=== PATIENT | male | born 1955 | race Caucasian/White ===

== ENCOUNTER 2017-08-23 18:08 | Inpatient (IN) | payer MEDICAID ==
[2017-08-23] MEDS ORDERED: Iohexol 240 (50 ml) PO ONE (20:00)
--- NOTE | 2017-08-23 20:02 | C.PDOC ---
History Of Present Illness Patient presents to the ER with a complaint of LLQ pain for the past 3 weeks. Patient admits to ETOH intake today; denies dysuria or diarrhea. Chief Complaint (Nursing): Abdominal Pain History Per: Patient History/Exam Limitations: no limitations Onset/Duration Of Symptoms: Days Current Symptoms Are (Timing): Still Present Location Of Pain/Discomfort: LLQ Radiation Of Pain To:: None Quality Of Discomfort: Unable To Describe Associated Symptoms: denies: Fever, Chills, Nausea, Vomiting Exacerbating Factors: None Alleviating Factors: None Recent travel outside of the [place]: No Past Medical History Reviewed: Historical Data, Nursing Documentation, Vital Signs Vital Signs: Last Vital Signs Temp 98.2 F 08/23/17 19:55 Pulse 117 H 08/23/17 19:55 Resp 20 08/23/17 19:55 BP 126/76 08/23/17 19:55 Pulse Ox 96 08/24/17 00:13 - Medical History PMH: HTN Surgical History: Appendectomy Family History: States: Unknown Family Hx - Social History Hx Alcohol Use: Yes Hx Substance Use: No - Immunization History Hx Tetanus Toxoid Vaccination: No Hx Influenza Vaccination: No Hx Pneumococcal Vaccination: No Review Of Systems Constitutional: Negative for: Fever, Chills Gastrointestinal: Positive for: Abdominal Pain. Negative for: Nausea, Vomiting , Diarrhea Genitourinary: Negative for: Dysuria Physical Exam - Physical Exam Appears: Non-toxic, No Acute Distress Skin: Normal Color, Warm, Dry Head: Atraumatic, Normacephalic Eye(s): bilateral: Normal Inspection Oral Mucosa: Moist Chest: Symmetrical Cardiovascular: Rhythm Regular, No Murmur Respiratory: No Rales, No Rhonchi, Wheezing (occa. wheezes and rhonchi) Gastrointestinal/Abdominal: Soft, Tenderness (LLQ), Distention (slightly) Back: Other (No blood noted) Neurological/Psych: Oriented x3, Normal Speech, Other (No focal deficits) ED Course And Treatment - Laboratory Results Result Diagrams: 08/23/17 20:28 08/23/17 20:28 O2 Sat by Pulse Oximetry: 96 (Room air) Pulse Ox Interpretation: Normal Progress Note: CT abd/pel, blood work, and urinalysis ordered. On reevaluation , patient noted to be tremulous and complaining of nausea. Disposition Discussed With : Jeremi Owusu Doctor Will See Patient In The: Hospital Counseled Patient/Family Regarding: Diagnosis - Disposition Disposition: HOSPITALIZED Disposition Time: 00:24 Condition: STABLE Forms: [facility] (Serbian) - POA Present On Arrival: None - Clinical Impression Clinical Impression: Abdominal pain, Alcohol intoxication, Hiatal hernia without gangrene and obstruction, Anemia, Withdrawal symptoms, alcohol - Scribe Statement The provider has reviewed the documentation as recorded by the Dnenisibjohn Ch All medical record entries made by the Dennisibjohn were at my direction and personally dictated by me. I have reviewed the chart and agree that the record accurately reflects my personal performance of the history, physical exam, medical decision making, and the department course for this patient. I have also personally directed, reviewed, and agree with the discharge instructions and disposition.
[2017-08-23] MEDS ORDERED: Iohexol 240 (50 ml) ONE (20:07)
[2017-08-23] MEDS ORDERED: Iohexol 300 100 ML IJ ONE (20:29)
[2017-08-23 20:41] LABS: RBC URINE 1 /hpf (0-3); TRANSITIONAL EPITHIAL < 1 /hpf (0-3); URINE BACTERIA RARE (<OCC); URINE BILIRUBIN NEGATIVE (NEGATIVE); URINE BLOOD NEGATIVE (NEGATIVE); URINE COLOR Yellow (YELLOW); URINE GLUCOSE (UA) NORMAL (Normal); URINE KETONE TRACE mg/dL (NEGATIVE); URINE LEUKOCYTE ESTERASE NEG Leu/uL (Negative); URINE PROTEIN NEGATIVE (NEGATIVE); URINE UROBILINOGEN NORMAL mg/dL (0.2-1.0); WBC URINE 1 /hpf (0-5)
[2017-08-23 20:55] LABS: ALB/GLOB RATIO 1.2 (1.0-2.1); ALCOHOL SERUM 128 mg/dl (0-10); ALKALINE PHOSPHATASE 83 U/L (38-126); ALT/SGPT 49 U/L (21-72); AST/SGOT 65 U/L (17-59); BILIRUBIN,TOTAL 0.8 mg/dL (0.2-1.3); BLOOD UREA NITROGEN 15 mg/dL (9-20); CALCIUM 7.9 mg/dl (8.6-10.4); CARBON DIOXIDE 15 mmol/L (22-30); CHLORIDE 98 mmol/L (98-107); GFR AFRICAN-AMERICAN > 60; GLUCOSE,RANDOM 108 mg/dL (75-110); POTASSIUM 3.9 mmol/L (3.6-5.2); SODIUM 132 mmol/L (132-148)
[2017-08-23 21:19] LABS: BASO % 0.8 % (0.0-2.0); EOS % 0.4 % (0.0-4.0); HEMATOCRIT 29.1 % (35.0-51.0); LYMPH # 0.1 K/uL (1.0-4.3); LYMPH % 1.3 % (20.0-40.0); MEAN CELL VOLUME 73.9 fL (80.0-94.0); MEAN CORPUSCULAR HEMOGLOBIN 22.1 pg (27.0-31.0); MEAN CORPUSCULAR HGB CONC 29.8 g/dL (33.0-37.0); MEAN PLATELET VOLUME 7.5 fL (7.2-11.7); MONO # 0.2 K/uL (0.0-0.8); NRBC % 0.1 % (0.0-2.0); PLATELET COUNT 202 K/uL (130-400); RED CELL DISTRIBUTION WIDTH 21.6 % (11.5-14.5); WHITE BLOOD COUNT 6.1 K/uL (4.8-10.8)
--- NOTE | 2017-08-23 22:49 | CT ---
EXAM: CT Abdomen and Pelvis With Intravenous Contrast CLINICAL HISTORY: 62 years old, male; Pain and signs and symptoms; Abdominal tenderness; Abdominal pain; Generalized; Cough and wheezing; Symptoms not specified; Chest pressure; Additional info: Cough/ wheezes TECHNIQUE: Axial computed tomography images of the abdomen and pelvis with intravenous contrast. All CT scans at this facility use one or more dose reduction techniques, viz.: automated exposure control; ma/kV adjustment per patient size (including targeted exams where dose is matched to indication; i.e. head); or iterative reconstruction technique. Coronal and sagittal reformatted images were created and reviewed. CONTRAST: 100 mL of OMNIPAQUE 300 administered intravenously. COMPARISON: No relevant prior studies available. FINDINGS: ABDOMEN: Liver: No acute findings. Gallbladder and bile ducts: The gallbladder is only minimally distended, without calcified stones. No significant intra- or extrahepatic biliary ductal dilation. Pancreas: Enhances homogeneously. No ductal dilation. No discrete mass. Spleen: No acute findings. Adrenals: No acute findings. Kidneys and ureters: No acute findings. No hydronephrosis or renal calculi. No discrete solid mass. PELVIS: Bladder: No acute findings. Reproductive: No acute findings. Appendix: The appendix is not definitively visualized, however no pericecal inflammatory change is identified to suggest the presence of acute appendicitis. ABDOMEN and PELVIS: Stomach and bowel: Paraesophageal hernia without volvulus. Oral contrast extends the level of the distal small bowel, without obstruction. No mucosal thickening. Peritoneum: No significant fluid collection. No free air. Lymph nodes: No pathologically enlarged lymph nodes. Vasculature: Unremarkable. Bones: No acute fracture. IMPRESSION: Paraesophageal hernia without volvulus. No additional findings, as detailed above. EXAM: CT Chest With Intravenous Contrast CLINICAL HISTORY: 62 years old, male; Pain and signs and symptoms; Abdominal tenderness; Abdominal pain; Generalized; Cough and wheezing; Symptoms not specified; Chest pressure; Additional info: Cough/ wheezes TECHNIQUE: Axial computed tomography images of the chest with intravenous contrast. All CT scans at this facility use one or more dose reduction techniques, viz.: automated exposure control; ma/kV adjustment per patient size (including targeted exams where dose is matched to indication; i.e. head); or iterative reconstruction technique. Coronal and sagittal reformatted images were created and reviewed. CONTRAST: 100 mL of OMNIPAQUE 300 administered intravenously. COMPARISON: No relevant prior studies available. FINDINGS: Lungs: A type 4 paraesophageal hernia is identified (consisting of nearly the entirety of the stomach, without volvulus), with adjacent compressive atelectasis. No mass. No consolidation. Pleural spaces: No significant effusion. No pneumothorax. Heart: No cardiomegaly. No significant pericardial effusion. Vasculature: No aortic aneurysm. No dissection. Trace calcified atherosclerotic disease. Lymph nodes: No enlarged lymph nodes. Bones: No acute fracture. IMPRESSION: Type 4 paraesophageal hernia, consisting of nearly the entirety of the stomach (without volvulus), with adjacent compressive atelectasis.
[2017-08-23 23:08] LABS: NEUTROPHIL 94 % (50-75); TOTAL CELLS COUNTED 100
[2017-08-24] MEDS ORDERED: Multivitamin (MVI) 10 ML, Thiamine 100 MG, Folic Acid 1 MG in Sodium Chloride 0.9% 1,00... IV ONE ×2 (00:13→02:19)
[2017-08-24] MEDS: Enoxaparin 40 mg Syringe SC SCH (10:08)
[2017-08-24] MEDS: Pantoprazole 40 mg EC Tab PO SCH (10:08)
--- NOTE | 2017-08-24 14:25 | PCM.PSYCH ---
Initial Psychiatric Evaluation - Initial Psychiatric Evaluation Type of Admission: Voluntary Legal Status: Capacity Chief Complaint (in patient's own words): "My knee, I need help" History of Present Illness and Precipitating Events: The pt is seen, chart reviewed and case discussed Consult was asked for his alcohol use He is a 62 y/o male, single with 2 children, lives in a gnosticist b/c he "lost" his apartment. Unemployed. He minimizes his alcohol use and claims he only drinks 1-2 shots No previous tx No drug use Denies psych hx or sxs except for anxiety He is mostly fixated on his knee problem (leg edema) and demands to see "a doctor" No other issues reported Medical: HTN Current Medications: Active Medications Generic Name Dose Route Start Last Admin Trade Name Freq PRN Reason Stop Dose Admin Chlordiazepoxide 0 mg 08/24/17 18:00 Librium PO 08/28/17 17:59 Q6 HOLGER Taper Enoxaparin Sodium 40 mg 08/24/17 10:00 08/24/17 10:08 Lovenox SC 40 mg DAILY HOLGER Administration Folic Acid 1 mg 08/24/17 14:30 Folic Acid PO DAILY HOLGER Multivitamins 1 tab 08/24/17 14:30 Hexavitamin PO DAILY [facility]GER Ondansetron HCl 4 mg 08/24/17 08:00 Zofran Odt PO Q4 PRN Nausea/Vomiting Pantoprazole Sodium 40 mg 08/24/17 10:00 08/24/17 10:08 Protonix Ec Tab PO 40 mg DAILY [facility]OLGER Administration Pneumococcal Polyvalent Vaccine 0.5 ml 08/27/17 10:00 Pneumovax 23 Vaccine IM 08/27/17 10:01 .ONCE ONE Thiamine HCl 100 mg 08/24/17 14:30 Vitamin B1 Tab PO DAILY HOLGER Trazodone HCl 50 mg 08/24/17 14:23 Desyrel PO HS PRN Insomnia Past Psychiatric History - Past Psychiatric History Previous Treatment History: None Pertinent Medical Hx (Current Medical&Sleep Prob, Allergies): Allergies Allergy/AdvReac Type Severity Reaction Status Date / Time No Known Allergies Allergy Verified 08/23/17 18:36 Review of Systems - Psychiatric Psychiatric: Abnormal Sleep Pattern, Anxiety. absent: Hallucinations, Homicidal Ideation, Suicidal Ideation Mental Status Examination - Personal Presentation Personal Presentation: Looks older than stated age - Affect Affect: Constricted - Motor Activity Motor Activity: Calm - Reliability in Providing Information Reliability in Providing Information: Fair - Speech Speech: Organized - Mood Mood: Anxious - Formal Thought Process Formal Thought Process: No Impairment - Cognitive Functions Orientation: Person, Place, Situation, Time Sensorium: Alert Attention/Concentration: Attentive Estimate of Intelligence: Average Judgement: Intact, as evidence by: Insight regarding need for hospitalization Memory: Recent intact, as evidence by: Ability to recall events of the day, Remote intact, as evidenced by: Abilit to recall sig. life events - Risk Risk: Withdrawal, Diminished functioning - Strength & Assets Inventory Strength & Assets Inventory: Cooperative DSM 5 DX - DSM 5 DSM 5 Diagnosis: Alcohol use d/o - moderate - Recommended/Plan of Treatment Treatment Recommendations and Plan of Treatment: Short librium detox to prevent any issues (he is under-reporting per chart) Trazodone for insomnia Support and psychoed Prn meds and vitamins Refer to rehab, ie [facility], if interested Psych will sign off Pls call if there is a question 31 min
--- NOTE | 2017-08-24 19:00 | CP.PCM.HP ---
History of Present Illness - History of Present Illness History of Present Illness: 62-year-old male with PMHHTN presents to the ER for evaluation of abdominal pain. C/O - abdominal pain for the last 20 days. Insidious in onset, progressive, in the left lower quadrant, throbbing type, intensity of 5/10, continuous throughout the day, partly relieved by medications. Patient admits to alcohol intake daily. No C/Oyellowish discoloration of urine sclera, fever, chills, rigors, bladder or bowel disturbances, vomiting. Present on Admission - Present on Admission Any Indicators Present on Admission: No Past Patient History - Past Medical History & Family History Past Medical History?: Yes - Past Social History Smoking Status: Never Smoked - CARDIAC Hx Cardiac Disorders: Yes Hx Hypertension: Yes - PULMONARY Hx Respiratory Disorders: No - NEUROLOGICAL Hx Neurological Disorder: No - HEENT Hx HEENT Problems: No - RENAL Hx Chronic Kidney Disease: No - ENDOCRINE/METABOLIC Hx Endocrine Disorders: No - HEMATOLOGICAL/ONCOLOGICAL Hx Blood Disorders: No - INTEGUMENTARY Hx Dermatological Problems: No - MUSCULOSKELETAL/RHEUMATOLOGICAL Hx Musculoskeletal Disorders: No Hx Falls: No - GASTROINTESTINAL Hx Gastrointestinal Disorders: No - GENITOURINARY/GYNECOLOGICAL Hx Genitourinary Disorders: Yes Hx Prostate Problems: Yes - PSYCHIATRIC Hx Psychophysiologic Disorder: No Hx Substance Use: No - SURGICAL HISTORY Hx Surgeries: Yes Hx Appendectomy: Yes - ANESTHESIA Hx Anesthesia: Yes Hx Anesthesia Reactions: No Hx Malignant Hyperthermia: No Has any member of the family had a problem w/ anesthesia?: No Meds Allergies/Adverse Reactions: Allergies Allergy/AdvReac Type Severity Reaction Status Date / Time No Known Allergies Allergy Verified 08/23/17 18:36 Physical Exam - Constitutional Appears: Well - Head Exam Head Exam: ATRAUMATIC, NORMAL INSPECTION, NORMOCEPHALIC - Eye Exam Eye Exam: EOMI, Normal appearance, PERRL Pupil Exam: NORMAL ACCOMODATION, PERRL - ENT Exam ENT Exam: Mucous Membranes Moist, Normal Exam - Neck Exam Neck exam: Positive for: Normal Inspection - Respiratory Exam Respiratory Exam: Decreased Breath Sounds - Cardiovascular Exam Cardiovascular Exam: REGULAR RHYTHM, +S1, +S2 - GI/Abdominal Exam GI & Abdominal Exam: Diminished Bowel Sounds, Soft - Rectal Exam Rectal Exam: Deferred Results - Vital Signs Recent Vital Signs: Last Vital Signs Temp 99.6 F 08/24/17 16:45 Pulse 87 11/29/17 16:45 Resp 18 08/24/17 16:45 BP 123/68 08/24/17 16:45 Pulse Ox 95 08/24/17 16:45 - Labs Result Diagrams: 08/23/17 20:28 08/23/17 20:28 Labs: Laboratory Results - last 24 hr 08/23/17 08/23/17 08/23/17 20:28 20:28 20:28 WBC 6.1 RBC 3.94 L Hgb 8.7 L Hct 29.1 L MCV 73.9 L MCH 22.1 L MCHC 29.8 L RDW 21.6 H Plt Count 202 MPV 7.5 Neut % (Auto) 94.5 H Lymph % (Auto) 1.3 L [place] % (Auto) 3.0 Eos % (Auto) 0.4 Baso % (Auto) 0.8 Neut # 5.7 Lymph # 0.1 L [place] # 0.2 Eos # 0.0 Baso # 0.0 Neutrophils % (Manual) 94 H Band Neutrophils % 1 Lymphocytes % (Manual) 2 L Monocytes % (Manual) 3 Platelet Estimate Normal Hypochromasia (manual) Slight Poikilocytosis (manual Slight Anisocytosis (manual) Slight Microcytosis (manual) Slight Sodium 132 Potassium 3.9 Chloride 98 Carbon Dioxide 15 L Anion Gap 22 H BUN 15 Creatinine 1.0 Est GFR ( Amer) > 60 Est GFR (Non-Af Amer) > 60 Random Glucose 108 Calcium 7.9 L Total Bilirubin 0.8 AST 65 H ALT 49 Alkaline Phosphatase 83 Total Protein 7.0 Albumin 3.8 Globulin 3.2 Albumin/Globulin Ratio 1.2 Lipase 57 Urine Color Yellow Urine Clarity Clear Urine pH 5.0 Ur Specific [place] 1.018 Urine Protein Negative Urine Glucose (UA) Normal Urine Ketones Trace Urine Blood Negative Urine Nitrate Negative Urine Bilirubin Negative Urine Urobilinogen Normal Ur Leukocyte Esterase Neg Urine WBC (Auto) 1 Urine RBC (Auto) 1 Ur Squamous Epith Cells < 1 Ur Transition Epith Cell < 1 Urine Bacteria Rare Stool Occult Blood Urine Opiates Screen Urine Methadone Screen Ur Barbiturates Screen Ur Phencyclidine Scrn Ur Amphetamines Screen U Benzodiazepines Scrn U Oth Cocaine Metabols U Cannabinoids Screen Alcohol, Quantitative 128 H 08/23/17 08/24/17 20:28 00:20 WBC RBC Hgb Hct MCV MCH MCHC RDW Plt Count MPV Neut % (Auto) Lymph % (Auto) [place] % (Auto) Eos % (Auto) Baso % (Auto) Neut # Lymph # [place] # Eos # Baso # Neutrophils % (Manual) Band Neutrophils % Lymphocytes % (Manual) Monocytes % (Manual) Platelet Estimate Hypochromasia (manual) Poikilocytosis (manual Anisocytosis (manual) Microcytosis (manual) Sodium Potassium Chloride Carbon Dioxide Anion Gap BUN Creatinine Est GFR ( Amer) Est GFR (Non-Af Amer) Random Glucose Calcium Total Bilirubin AST ALT Alkaline Phosphatase Total Protein Albumin Globulin Albumin/Globulin Ratio Lipase Urine Color Urine Clarity Urine pH Ur Specific [place] Urine Protein Urine Glucose (UA) Urine Ketones Urine Blood Urine Nitrate Urine Bilirubin Urine Urobilinogen Ur Leukocyte Esterase Urine WBC (Auto) Urine RBC (Auto) Ur Squamous Epith Cells Ur Transition Epith Cell Urine Bacteria Stool Occult Blood Negative Urine Opiates Screen Negative Urine Methadone Screen Negative Ur Barbiturates Screen Negative Ur Phencyclidine Scrn Negative Ur Amphetamines Screen Negative U Benzodiazepines Scrn Negative U Oth Cocaine Metabols Negative U Cannabinoids Screen Negative Alcohol, Quantitative
[2017-08-24] MEDS ORDERED: HYDROmorphone 1 mg/ml ISec IVP PRN (19:16)
[2017-08-24] MEDS ORDERED: DiphenhydrAMINE 50 mg/ml Inj IVP PRN (19:16)
--- NOTE | 2017-08-25 09:23 | CP.PCM.PN ---
Addendum entered and electronically signed by Alvaro Denis DO 08/25/17 16:05: d/c planning; patient is pending echo which will be done tomorrow patient will likely be ok for d/c after echo surgery as outpatient Original Note: <Alvaro Denis - Last Filed: 08/25/17 10:31> Subjective - Date & Time of Evaluation Date of Evaluation: 08/25/17 Time of Evaluation: 09:24 - Subjective Subjective: PGY2 Medicine Note for Dr. Marin Owusu; all management as per Dr. Marin Owusu Pt seen and examined at bedside this AM; states he still has abdominal pain which is related to his type 4 paraesophageal hernia; he states he feels like his alchol withdrawal is being handled nicely with librium taper; no signs of DT /hallucinations/seizures patient is ANOx3 and mildly tremulous on exam. No other complaints. Objective - Vital Signs/Intake and Output Vital Signs (last 24 hours): Temp Pulse Resp BP Pulse Ox 98 F 109 H 20 138/84 96 08/24/17 18:45 08/24/17 18:45 08/24/17 18:45 08/24/17 18:45 08/24/17 18:45 Intake and Output: 08/25/17 08/25/17 06:59 18:59 Intake Total 200 Output Total 900 Balance -700 - Medications Medications: Current Medications Chlordiazepoxide (Librium) 25 mg PO .TAPER HOLGER PRN Reason: Taper Stop: 08/28/17 17:59 Diphenhydramine HCl (Benadryl) 25 mg IVP Q8H PRN PRN Reason: Itching / Pruritus Enoxaparin Sodium (Lovenox) 40 mg SC DAILY [facility] Last Admin: 08/24/17 10:08 Dose: 40 mg Folic Acid (Folic Acid) 1 mg PO DAILY [facility] Hydromorphone HCl (Dilaudid) 1 mg IVP Q8H PRN PRN Reason: Pain, moderate (4-7) Multivitamins (Hexavitamin) 1 tab PO DAILY HOLGER Ondansetron HCl (Zofran Odt) 4 mg PO Q4 PRN PRN Reason: Nausea/Vomiting Pantoprazole Sodium (Protonix Ec Tab) 40 mg PO DAILY [facility] Last Admin: 08/24/17 10:08 Dose: 40 mg Pneumococcal Polyvalent Vaccine (Pneumovax 23 Vaccine) 0.5 ml IM .ONCE ONE Stop: 08/27/17 10:01 Thiamine HCl (Vitamin B1 Tab) 100 mg PO DAILY HOLGER Trazodone HCl (Desyrel) 50 mg PO HS PRN PRN Reason: Insomnia - Labs Labs: 08/23/17 20:28 08/23/17 20:28 - Constitutional Appears: Well, Non-toxic - Head Exam Head Exam: ATRAUMATIC - Eye Exam Eye Exam: EOMI, Normal appearance - ENT Exam ENT Exam: Mucous Membranes Moist - Neck Exam Neck Exam: Full ROM - Respiratory Exam Respiratory Exam: Clear to Ausculation Bilateral - Cardiovascular Exam Cardiovascular Exam: REGULAR RHYTHM - GI/Abdominal Exam GI & Abdominal Exam: Soft - Extremities Exam Extremities Exam: Full ROM. absent: Calf Tenderness - Back Exam Back Exam: absent: CVA tenderness (L), CVA tenderness (R) - Neurological Exam Neurological Exam: Alert, Awake, Oriented x3 - Psychiatric Exam Psychiatric exam: Normal Affect - Skin Skin Exam: Warm Assessment and Plan - Assessment and Plan (Free Text) Assessment: 62yo M admitted for EtOH Withdrawl EtOH Withdrawal -Thiamine/Folate daily -Librium Taper -once stable patient can be d/c home/to outpatient rehab as per psych -patient is not in DT/having seizures/actively withdrawing on current taper -patient is tolerating PO Pancytopenia most likely 2/2 to crhonic EtOH Bone marrow toxicity -patient has no active bleeding -will continue to monitor; patient advised to stop drinking Type 4 paraesophageal hernia -patient will likely need surgical repair; pending surgical consult -patient needs to be medically optimized before surgery; f/u echo and Dr. Humphrey cardio recs Proph Protonix Lovenox Heart Healthy Diet All management as per Dr. Marin Owusu <Jeremi Owusu S - Last Filed: 08/25/17 17:18> Objective - Vital Signs/Intake and Output Vital Signs (last 24 hours): Temp Pulse Resp BP Pulse Ox 98.5 F 83 20 127/77 95 08/25/17 16:15 08/25/17 16:15 08/25/17 16:15 08/25/17 16:15 08/25/17 16:15 Intake and Output: 08/25/17 08/25/17 06:59 18:59 Intake Total 1280 Output Total 900 Balance 380 - Medications Medications: Current Medications Chlordiazepoxide (Librium) 25 mg PO .TAPER [facility] PRN Reason: Taper Stop: 08/28/17 17:59 Diphenhydramine HCl (Benadryl) 25 mg IVP Q8H PRN PRN Reason: Itching / Pruritus Docusate Sodium (Colace) 100 mg PO BID [facility] Last Admin: 08/25/17 10:12 Dose: 100 mg Enoxaparin Sodium (Lovenox) 40 mg SC DAILY [facility] Last Admin: 08/25/17 10:12 Dose: 40 mg Folic Acid (Folic Acid) 1 mg PO DAILY [facility] Last Admin: 08/25/17 10:12 Dose: 1 mg Guaifenesin/Codeine Phosphate (Guaifenesin/Codeine) 10 ml PO Q4H PRN PRN Reason: Cough and congestion Last Admin: 08/25/17 10:11 Dose: 10 ml Hydromorphone HCl (Dilaudid) 1 mg IVP Q8H PRN PRN Reason: Pain, moderate (4-7) Multivitamins (Hexavitamin) 1 tab PO DAILY [facility] Last Admin: 08/25/17 10:12 Dose: 1 tab Ondansetron HCl (Zofran Odt) 4 mg PO Q4 PRN PRN Reason: Nausea/Vomiting Pantoprazole Sodium (Protonix Ec Tab) 40 mg PO BID [facility] Pneumococcal Polyvalent Vaccine (Pneumovax 23 Vaccine) 0.5 ml IM .ONCE ONE Stop: 08/27/17 10:01 Tamsulosin HCl (Flomax) 0.8 mg PO DAILY [facility] Last Admin: 08/25/17 14:22 Dose: 0.8 mg Thiamine HCl (Vitamin B1 Tab) 100 mg PO DAILY [facility] Last Admin: 08/25/17 10:12 Dose: 100 mg Trazodone HCl (Desyrel) 50 mg PO HS PRN PRN Reason: Insomnia - Labs Labs: 08/23/17 20:28 08/23/17 20:28 Attending/Attestation - Attestation I have personally seen and examined this patient.: Yes I have fully participated in the care of the patient.: Yes I have reviewed all pertinent clinical information, including history, physical exam and plan: Yes Notes (Text): Patient examined. Patient better. Patient still has mild abdominal pain, Likely related to type IV paraesophageal hernia. 2D echo tomorrow. Continue Librium, multivitamins, thiamine and folic acid. Continue supportive care.
[2017-08-25] MEDS: Pantoprazole 40 mg EC Tab PO SCH ×2 (10:11→18:24)
[2017-08-25] MEDS: guaiFENesin-Codeine 100-10mg/5ml Syrup (10ml) UD PO PRN (10:11)
[2017-08-25] MEDS: Enoxaparin 40 mg Syringe SC SCH (10:12)
[2017-08-25] MEDS: Multiple Vitamins Tab PO SCH (10:12)
--- NOTE | 2017-08-25 10:42 | CP.PCM.CON ---
<Curly Wills - Last Filed: 08/25/17 17:01> History of Present Illness - History of Present Illness History of Present Illness: General Surgery Consult Note for Dr. Sandoval Reason for consult: grade IV paraesophageal hernia 62 M with PMH of HTN, EtOH abuse, BPH who was admitted for intoxication and abdominal pain. CT chest/abdomen/pelvis was done and findings showed a grade IV paraesophageal hernia. Patient states that he has been having abdominal pain for last 2-3 months. Patient states that he has associated nausea and reflux intermittently. He reports a gradual onset and states it has gotten progressively worse. He rates the pain as moderate. He describes it as constant dull ache in epigastric region without radiation. He also reports productive cough. He is toelrating diet and having normal BMs. Certain foods/liquids exacerbates symptoms while nothing alleviates it specifically. Admits to urinary urgency, frequency, hesitancy. Denies chest pain, sob, palpitations, constipation, diarrhea, incontinence. PMH: HTN, EtOH abuse, BPH, Grade IV paraesophageal hernia Meds: As per EMR Allergy: NKDA PSH: Denies FH: unknown Social: denies tobacco/illicit drug use, drinks 1-2 shots per day, homeless currently Review of Systems - Review of Systems All systems: reviewed and no additional remarkable complaints except (as per HPI ) Past Patient History - Past Medical History & Family History Past Medical History?: Yes - Past Social History Smoking Status: Never Smoked - CARDIAC Hx Cardiac Disorders: Yes Hx Hypertension: Yes - PULMONARY Hx Respiratory Disorders: No - NEUROLOGICAL Hx Neurological Disorder: No - HEENT Hx HEENT Problems: No - RENAL Hx Chronic Kidney Disease: No - ENDOCRINE/METABOLIC Hx Endocrine Disorders: No - HEMATOLOGICAL/ONCOLOGICAL Hx Blood Disorders: No - INTEGUMENTARY Hx Dermatological Problems: No - MUSCULOSKELETAL/RHEUMATOLOGICAL Hx Musculoskeletal Disorders: No Hx Falls: No - GASTROINTESTINAL Hx Gastrointestinal Disorders: No - GENITOURINARY/GYNECOLOGICAL Hx Genitourinary Disorders: Yes Hx Prostate Problems: Yes - PSYCHIATRIC Hx Psychophysiologic Disorder: No Hx Substance Use: No - SURGICAL HISTORY Hx Surgeries: Yes Hx Appendectomy: Yes - ANESTHESIA Hx Anesthesia: Yes Hx Anesthesia Reactions: No Hx Malignant Hyperthermia: No Has any member of the family had a problem w/ anesthesia?: No Meds Allergies/Adverse Reactions: Allergies Allergy/AdvReac Type Severity Reaction Status Date / Time No Known Allergies Allergy Verified 08/23/17 18:36 - Medications Medications: Current Medications Chlordiazepoxide (Librium) 25 mg PO .TAPER [facility] PRN Reason: Taper Stop: 08/28/17 17:59 Diphenhydramine HCl (Benadryl) 25 mg IVP Q8H PRN PRN Reason: Itching / Pruritus Docusate Sodium (Colace) 100 mg PO BID [facility] Last Admin: 08/25/17 10:12 Dose: 100 mg Enoxaparin Sodium (Lovenox) 40 mg SC DAILY [facility] Last Admin: 08/25/17 10:12 Dose: 40 mg Folic Acid (Folic Acid) 1 mg PO DAILY [facility] Last Admin: 08/25/17 10:12 Dose: 1 mg Guaifenesin/Codeine Phosphate (Guaifenesin/Codeine) 10 ml PO Q4H PRN PRN Reason: Cough and congestion Last Admin: 08/25/17 10:11 Dose: 10 ml Hydromorphone HCl (Dilaudid) 1 mg IVP Q8H PRN PRN Reason: Pain, moderate (4-7) Multivitamins (Hexavitamin) 1 tab PO DAILY [facility] Last Admin: 08/25/17 10:12 Dose: 1 tab Ondansetron HCl (Zofran Odt) 4 mg PO Q4 PRN PRN Reason: Nausea/Vomiting Pantoprazole Sodium (Protonix Ec Tab) 40 mg PO BID [facility] Pneumococcal Polyvalent Vaccine (Pneumovax 23 Vaccine) 0.5 ml IM .ONCE ONE Stop: 08/27/17 10:01 Thiamine HCl (Vitamin B1 Tab) 100 mg PO DAILY [facility] Last Admin: 08/25/17 10:12 Dose: 100 mg Trazodone HCl (Desyrel) 50 mg PO HS PRN PRN Reason: Insomnia Physical Exam - Constitutional Appears: No Acute Distress - Head Exam Head Exam: ATRAUMATIC, NORMOCEPHALIC - Eye Exam Eye Exam: EOMI, Normal appearance Pupil Exam: PERRL - ENT Exam ENT Exam: Mucous Membranes Moist - Neck Exam Neck exam: Positive for: Full Rom - Respiratory Exam Respiratory Exam: NORMAL BREATHING PATTERN - Cardiovascular Exam Cardiovascular Exam: REGULAR RHYTHM - GI/Abdominal Exam GI & Abdominal Exam: Normal Bowel Sounds, Soft, Tenderness (epigastric region). absent: Distended, Firm, Guarding, Mass, Rigid - Extremities Exam Extremities exam: Positive for: normal capillary refill, pedal pulses present - Back Exam Back exam: absent: CVA tenderness (L), CVA tenderness (R) - Neurological Exam Neurological exam: Alert, CN II-XII Intact, Oriented x3 - Psychiatric Exam Psychiatric exam: Normal Affect, Normal Mood - Skin Skin Exam: Dry, Intact, Normal Color, Warm Results - Vital Signs Recent Vital Signs: Last Vital Signs Temp 98 F 08/25/17 08:00 Pulse 82 08/25/17 08:00 Resp 20 08/25/17 08:00 BP 133/74 08/25/17 08:00 Pulse Ox 96 08/25/17 08:00 - Labs Result Diagrams: 08/23/17 20:28 08/23/17 20:28 Assessment & Plan - Assessment and Plan (Free Text) Plan: 62 M with grade IV paraesophageal hernia -No immediate surgical intervention required - need proper work-up and can be done electively -Recommend GI evaluation -Patient needs to refrain from drinking -Recommend Cardiac evaluation -Discussed with Dr. Lori Wills PGY1 <Foreign Sandoval - Last Filed: 08/26/17 22:13> Meds - Medications Medications: Current Medications Calcium Carbonate (Tums) 500 mg PO BID [facility] Last Admin: 08/26/17 17:12 Dose: 500 mg Chlordiazepoxide (Librium) 25 mg PO BID [facility] PRN Reason: Taper Stop: 08/28/17 17:59 Last Admin: 08/26/17 17:12 Dose: 25 mg Diphenhydramine HCl (Benadryl) 25 mg IVP Q8H PRN PRN Reason: Itching / Pruritus Docusate Sodium (Colace) 100 mg PO BID [facility] Last Admin: 08/26/17 17:12 Dose: 100 mg Enoxaparin Sodium (Lovenox) 40 mg SC DAILY [facility] Last Admin: 08/26/17 10:13 Dose: 40 mg Folic Acid (Folic Acid) 1 mg PO DAILY [facility] Last Admin: 08/26/17 10:13 Dose: 1 mg Guaifenesin/Codeine Phosphate (Guaifenesin/Codeine) 10 ml PO Q4H PRN PRN Reason: Cough and congestion Last Admin: 08/25/17 10:11 Dose: 10 ml Hydromorphone HCl (Dilaudid) 1 mg IVP Q8H PRN PRN Reason: Pain, moderate (4-7) Multivitamins (Hexavitamin) 1 tab PO DAILY [facility] Last Admin: 08/26/17 10:13 Dose: 1 tab Ondansetron HCl (Zofran Odt) 4 mg PO Q4 PRN PRN Reason: Nausea/Vomiting Pantoprazole Sodium (Protonix Ec Tab) 40 mg PO BID [facility] Last Admin: 08/26/17 17:12 Dose: 40 mg Pneumococcal Polyvalent Vaccine (Pneumovax 23 Vaccine) 0.5 ml IM .ONCE ONE Stop: 08/27/17 10:01 Potassium Chloride (Potassium Chloride Oral Soln) 20 meq PO Q2 [facility] Last Admin: 08/26/17 21:09 Dose: 20 meq Tamsulosin HCl (Flomax) 0.8 mg PO DAILY [facility] Last Admin: 08/26/17 10:12 Dose: 0.8 mg Thiamine HCl (Vitamin B1 Tab) 100 mg PO DAILY [facility] Last Admin: 08/26/17 10:13 Dose: 100 mg Trazodone HCl (Desyrel) 50 mg PO HS PRN PRN Reason: Insomnia Results - Vital Signs Recent Vital Signs: Last Vital Signs Temp 98.2 F 08/26/17 16:00 Pulse 81 08/26/17 16:00 Resp 20 08/26/17 16:00 BP 107/67 08/26/17 16:00 Pulse Ox 95 08/26/17 16:00 - Labs Result Diagrams: 08/26/17 08:07 08/26/17 08:07 Labs: Laboratory Results - last 24 hr 08/26/17 08/26/17 08:07 08:07 WBC 4.5 L RBC 3.89 L Hgb 8.6 L Hct 28.8 L MCV 73.9 L MCH 22.1 L MCHC 29.9 L RDW 21.3 H Plt Count 194 MPV 8.6 Neut % (Auto) 60.7 Lymph % (Auto) 21.3 [place] % (Auto) 12.1 H Eos % (Auto) 5.0 H Baso % (Auto) 0.9 Neut # 2.8 Lymph # 1.0 [place] # 0.5 Eos # 0.2 Baso # 0.0 Sodium 139 Potassium 3.5 L Chloride 101 Carbon Dioxide 32 H Anion Gap 9 L BUN 12 Creatinine 1.1 Est GFR ( Amer) > 60 Est GFR (Non-Af Amer) > 60 Random Glucose 105 Calcium 8.0 L Total Bilirubin 0.6 AST 44 ALT 46 Alkaline Phosphatase 72 Total Protein 6.0 L Albumin 3.2 L Globulin 2.7 Albumin/Globulin Ratio 1.2 Attending/Attestation - Attestation I have personally seen and examined this patient.: Yes I have fully participated in the care of the patient.: Yes I have reviewed all pertinent clinical information: Yes Notes (Text): Pt was seen and examined at bedside Agree with above note and assessment Pt with abdominal pain, ETOH abuse, Large Hiatal hernia Labs and radiology reviewed Clinically Pt is improving Abdomen is non tender. No clinical evidence of strangulation or obstruction. Can start liquid diet c.w current mx for ETOH withdrawal GI consult for EGD Upper GI series Plan d/w pt in detail Plan d.w PMD Risk and benefit explained in detail.
--- NOTE | 2017-08-25 13:24 | CP.PCM.CON ---
History of Present Illness - History of Present Illness History of Present Illness: I was asked to see patient for cardiovascular risk assessment. Patient is a 62 year old male with PMH ETOH abuse, HTN who presents with abdominal pain. Patient was found to have a paraesophageal hernia. Consultation was requested for preoperative risk assessment. The patient denies current chest pain. There is no EKG for me to interpret. Review of Systems - Constitutional Constitutional: absent: As Per HPI, Anorexia, Chills, Daytime Sleepiness, Excessive Sweating, Fatigue, Fever, Frequent Falls, Headache, Increased Appetite , Lethargy, Malaise, Night Sweats, Snoring, Sleep Apnea, Weight Gain, Weight Loss, Weakness, Other - EENT Eyes: absent: As Per HPI, Blind Spots, Blurred Vision, Change in Vision, Decreased Night Vision, Diplopia, Discharge, Dry Eye, Exophthalmos, Floaters, Irritation, Itchy Eyes, Loss of Peripheral Vision, Pain, Photophobia, Requires Corrective Lenses, Sees Flashes, Spots in Vision, Tunnel Vision, Other Visual Disturbances, Loss of Vision, Other Ears: absent: As Per HPI, Decreased Hearing, Ear Discharge, Ear Pain, Tinnitus, Abnormal Hearing, Disequilibrium, Dizziness, Other Nose/Mouth/Throat: absent: As Per HPI, Epistaxis, Nasal Congestion, Nasal Discharge, Nasal Obstruction, Nasal Trauma, Nose Pain, Post Nasal Drip, Sinus Pain, Sinus Pressure, Bleeding Gums, Change in Voice, Dental Pain, Dry Mouth, Dysphagia, Halitosis, Hoarsness, Lip Swelling, Mouth Lesions, Mouth Pain, Odynophagia, Sore Throat, Throat Swelling, Tongue Swelling, Facial Pain, Neck Pain, Neck Mass, Other - Cardiovascular Cardiovascular: absent: As Per HPI, Acrocyanosis, Chest Pain, Chest Pain at Rest , Chest Pain with Activity, Claudication, Diaphoresis, Dyspnea, Dyspnea on Exertion, Edema, Irregular Heart Rhythm, Pain Radiating to Arm/Neck/Jaw, Leg Edema, Leg Ulcers, Lightheadedness, Orthopnea, Palpitations, Paroxysmal Nocturnal Dyspnea, Pedal Edema, Radiating Pain, Rapid Heart Rate, Slow Heart Rate, Syncope, Other - Respiratory Respiratory: absent: As Per HPI, Cough, Dyspnea, Hemoptysis, Dyspnea on Exertion , Wheezing, Snoring, Stridor, Pain on Inspiration, Chest Congestion, Excessive Mucous Production, Change in Mucous Color, Pain with Coughing, Other - Gastrointestinal Gastrointestinal: Abdominal Pain - Genitourinary Genitourinary: absent: As Per HPI, Change in Urinary Stream, Difficulty Urinating, Dysuria, Flank Pain, Hematuria, Pyuria, Nocturia, Urinary Incontinence, Urinary Frequency, Urinary Hesitance, Urinary Urgency, Voiding Freq/Small Amts, Freq UTI, Hx Renal/Bladder Calculi, Hx /Renal Surgery, Bladder Distension, Other - Musculoskeletal Musculoskeletal: absent: As Per HPI, Abnormal Gait, Arthralgias, Atrophy, Back Pain, Deformity, Joint Swelling, Limited Range of Motion, Loss of Height, Muscle Cramps, Muscle Weakness, Myalgias, Neck Pain, Numbness, Radiating Pain into Limb, Stiffness, Tingling, Other - Integumentary Integumentary: absent: As Per HPI, Acne, Alopecia, Bleeding Lesions, Change in Hair, Change in Nails, Change in Pigmentation, Changing Lesions, Dry Skin, Erythema, Furuncle, Hirsutism, Lesions, New Lesions, Non-Healing Lesions, Photosensitivity, Pruritus, Rash, Skin Pain, Skin Ulcer, Sores, Striae, Swelling , Unusual Bruising, Wounds, Jaundice, Other - Neurological Neurological: absent: As Per HPI, Abnormal Gait, Abnormal Hearing, Abnormal Movements, Abnormal Speech, Behavioral Changes, Burning Sensations, Confusion, Convulsions, Disequilibrium, Dizziness, Numbness, Focal Weakness, Frequent Falls , Headaches, Lack of Coordination, Loss of Vision, Memory Loss, Paresthesias, Radicular Pain, Restless Legs, Sensory Deficit, Syncope, Tingling, Tremor, Vertigo, Weakness, Other Visual Disturbances, Other - Psychiatric Psychiatric: absent: As Per HPI, Abnormal Sleep Pattern, Anhedonia, Anxiety, Auditory Hallucinations, Behavioral Changes, Change in Appetite, Change in Libido, Confusion, Depression, Difficulty Concentrating, Hallucinations, Homicidal Ideation, Hopelessness, Irritability, Memory Loss, Mood Swings, Panic Attacks, Paranoia, Suicidal Ideation, Visual Hallucinations, Tactile Hallucinations, Other - Endocrine Endocrine: absent: As Per HPI, Change in Body Appearance, Change in Libido, Cold Intolorance, Deepening of Voice, Excessive Sweating, Fatigue, Flushing, Heat Intolorance, Increase in Ring/Shoe/Hat Size, Palpitations, Polydipsia, Polyphagia, Polyuria, Other - Hematologic/Lymphatic Hematologic: absent: As Per HPI, Easy Bleeding, Easy Bruising, Lymphadenopathy, Other Past Patient History - Past Medical History & Family History Past Medical History?: Yes - Past Social History Smoking Status: Never Smoked - CARDIAC Hx Cardiac Disorders: Yes Hx Hypertension: Yes - PULMONARY Hx Respiratory Disorders: No - NEUROLOGICAL Hx Neurological Disorder: No - HEENT Hx HEENT Problems: No - RENAL Hx Chronic Kidney Disease: No - ENDOCRINE/METABOLIC Hx Endocrine Disorders: No - HEMATOLOGICAL/ONCOLOGICAL Hx Blood Disorders: No - INTEGUMENTARY Hx Dermatological Problems: No - MUSCULOSKELETAL/RHEUMATOLOGICAL Hx Musculoskeletal Disorders: No Hx Falls: No - GASTROINTESTINAL Hx Gastrointestinal Disorders: No - GENITOURINARY/GYNECOLOGICAL Hx Genitourinary Disorders: Yes Hx Prostate Problems: Yes - PSYCHIATRIC Hx Psychophysiologic Disorder: No Hx Substance Use: No - SURGICAL HISTORY Hx Surgeries: Yes Hx Appendectomy: Yes - ANESTHESIA Hx Anesthesia: Yes Hx Anesthesia Reactions: No Hx Malignant Hyperthermia: No Has any member of the family had a problem w/ anesthesia?: No Meds Allergies/Adverse Reactions: Allergies Allergy/AdvReac Type Severity Reaction Status Date / Time No Known Allergies Allergy Verified 08/23/17 18:36 - Medications Medications: Current Medications Chlordiazepoxide (Librium) 25 mg PO .TAPER [facility] PRN Reason: Taper Stop: 08/28/17 17:59 Diphenhydramine HCl (Benadryl) 25 mg IVP Q8H PRN PRN Reason: Itching / Pruritus Docusate Sodium (Colace) 100 mg PO BID [facility] Last Admin: 08/25/17 10:12 Dose: 100 mg Enoxaparin Sodium (Lovenox) 40 mg SC DAILY [facility] Last Admin: 08/25/17 10:12 Dose: 40 mg Folic Acid (Folic Acid) 1 mg PO DAILY [facility] Last Admin: 08/25/17 10:12 Dose: 1 mg Guaifenesin/Codeine Phosphate (Guaifenesin/Codeine) 10 ml PO Q4H PRN PRN Reason: Cough and congestion Last Admin: 08/25/17 10:11 Dose: 10 ml Hydromorphone HCl (Dilaudid) 1 mg IVP Q8H PRN PRN Reason: Pain, moderate (4-7) Multivitamins (Hexavitamin) 1 tab PO DAILY [facility] Last Admin: 08/25/17 10:12 Dose: 1 tab Ondansetron HCl (Zofran Odt) 4 mg PO Q4 PRN PRN Reason: Nausea/Vomiting Pantoprazole Sodium (Protonix Ec Tab) 40 mg PO BID [facility] Pneumococcal Polyvalent Vaccine (Pneumovax 23 Vaccine) 0.5 ml IM .ONCE ONE Stop: 08/27/17 10:01 Thiamine HCl (Vitamin B1 Tab) 100 mg PO DAILY [facility] Last Admin: 08/25/17 10:12 Dose: 100 mg Trazodone HCl (Desyrel) 50 mg PO HS PRN PRN Reason: Insomnia Physical Exam - Constitutional Appears: Non-toxic - Head Exam Head Exam: NORMAL INSPECTION - Eye Exam Eye Exam: Normal appearance - ENT Exam ENT Exam: Mucous Membranes Moist - Neck Exam Neck exam: Positive for: Full Rom - Respiratory Exam Respiratory Exam: Decreased Breath Sounds - Cardiovascular Exam Cardiovascular Exam: REGULAR RHYTHM - GI/Abdominal Exam GI & Abdominal Exam: Normal Bowel Sounds - Rectal Exam Rectal Exam: Deferred - Extremities Exam Extremities exam: Positive for: pedal edema - Back Exam Back exam: NORMAL INSPECTION - Neurological Exam Neurological exam: Alert, Oriented x3 - Psychiatric Exam Psychiatric exam: Normal Affect - Skin Skin Exam: Normal Color Results - Vital Signs Recent Vital Signs: Last Vital Signs Temp 98 F 08/25/17 08:00 Pulse 82 08/25/17 08:00 Resp 20 08/25/17 08:00 BP 133/74 08/25/17 08:00 Pulse Ox 96 08/25/17 08:00 - Labs Result Diagrams: 08/23/17 20:28 08/23/17 20:28 Labs: Laboratory Results - last 24 hr 08/25/17 11:59 Blood Type B POSITIVE Antibody Screen Negative - EKG Data EKG Interpreted by: Myself EKG shows normal: Sinus rhythm Assessment & Plan (1) HTN (hypertension) Assessment and Plan: blood pressure control. consider addition of betablocker. Status: Acute (2) Hiatal hernia without gangrene and obstruction Assessment and Plan: recommend echocardiogram to evaluate LV function prior to surgery. Status: Acute
[2017-08-25] MEDS ORDERED: Magnesium Citrate Oral SOL (300 ml) PO ONE (13:53)
--- NOTE | 2017-08-25 18:51 | CP.PCM.PN ---
Subjective - Date & Time of Evaluation Date of Evaluation: 08/25/17 Time of Evaluation: 09:40 - Subjective Subjective: clinically same Objective - Vital Signs/Intake and Output Vital Signs (last 24 hours): Temp Pulse Resp BP Pulse Ox 98.5 F 83 20 127/77 95 08/25/17 16:15 08/25/17 16:15 08/25/17 16:15 08/25/17 16:15 08/25/17 16:15 Intake and Output: 08/25/17 08/25/17 06:59 18:59 Intake Total 1280 Output Total 900 Balance 380 - Medications Medications: Current Medications Chlordiazepoxide (Librium) 25 mg PO TID [facility] PRN Reason: Taper Stop: 08/28/17 17:59 Last Admin: 08/25/17 18:24 Dose: 25 mg Diphenhydramine HCl (Benadryl) 25 mg IVP Q8H PRN PRN Reason: Itching / Pruritus Docusate Sodium (Colace) 100 mg PO BID [facility] Last Admin: 08/25/17 18:25 Dose: Not Given Enoxaparin Sodium (Lovenox) 40 mg SC DAILY [facility] Last Admin: 08/25/17 10:12 Dose: 40 mg Folic Acid (Folic Acid) 1 mg PO DAILY [facility] Last Admin: 08/25/17 10:12 Dose: 1 mg Guaifenesin/Codeine Phosphate (Guaifenesin/Codeine) 10 ml PO Q4H PRN PRN Reason: Cough and congestion Last Admin: 08/25/17 10:11 Dose: 10 ml Hydromorphone HCl (Dilaudid) 1 mg IVP Q8H PRN PRN Reason: Pain, moderate (4-7) Multivitamins (Hexavitamin) 1 tab PO DAILY [facility] Last Admin: 08/25/17 10:12 Dose: 1 tab Ondansetron HCl (Zofran Odt) 4 mg PO Q4 PRN PRN Reason: Nausea/Vomiting Pantoprazole Sodium (Protonix Ec Tab) 40 mg PO BID [facility] Last Admin: 08/25/17 18:24 Dose: 40 mg Pneumococcal Polyvalent Vaccine (Pneumovax 23 Vaccine) 0.5 ml IM .ONCE ONE Stop: 08/27/17 10:01 Tamsulosin HCl (Flomax) 0.8 mg PO DAILY [facility] Last Admin: 08/25/17 14:22 Dose: 0.8 mg Thiamine HCl (Vitamin B1 Tab) 100 mg PO DAILY [facility] Last Admin: 08/25/17 10:12 Dose: 100 mg Trazodone HCl (Desyrel) 50 mg PO HS PRN PRN Reason: Insomnia - Labs Labs: 08/23/17 20:28 08/23/17 20:28 - Constitutional Appears: Well - Head Exam Head Exam: ATRAUMATIC, NORMAL INSPECTION, NORMOCEPHALIC - Eye Exam Eye Exam: EOMI, Normal appearance, PERRL Pupil Exam: NORMAL ACCOMODATION, PERRL - ENT Exam ENT Exam: Mucous Membranes Moist, Normal Exam - Neck Exam Neck Exam: Full ROM, Normal Inspection. absent: Lymphadenopathy - Respiratory Exam Respiratory Exam: Decreased Breath Sounds - Cardiovascular Exam Cardiovascular Exam: REGULAR RHYTHM, +S1, +S2 - GI/Abdominal Exam GI & Abdominal Exam: Soft, Diminished Bowel Sounds - Rectal Exam Rectal Exam: Deferred Assessment and Plan (1) Abdominal pain Status: Acute (2) Alcohol intoxication Status: Acute (3) Anemia Status: Acute (4) HTN (hypertension) Status: Acute (5) Hiatal hernia without gangrene and obstruction Status: Acute (6) Withdrawal symptoms, alcohol Status: Acute - Assessment and Plan (Free Text) Plan: Patient examined. Patient better. Continue chlordiazepoxide. Continue multivitamins, thiamine and folic acid. Continue supportive care.
[2017-08-26 08:23] LABS: BASO % 0.9 % (0.0-2.0); EOS # 0.2 K/uL (0.0-0.7); HEMATOCRIT 28.8 % (35.0-51.0); LYMPH % 21.3 % (20.0-40.0); MEAN CELL VOLUME 73.9 fL (80.0-94.0); MEAN CORPUSCULAR HEMOGLOBIN 22.1 pg (27.0-31.0); MEAN CORPUSCULAR HGB CONC 29.9 g/dL (33.0-37.0); MEAN PLATELET VOLUME 8.6 fL (7.2-11.7); MONO # 0.5 K/uL (0.0-0.8); MONO % 12.1 % (0.0-10.0); NRBC % 0.1 % (0.0-2.0); RED CELL DISTRIBUTION WIDTH 21.3 % (11.5-14.5); WHITE BLOOD COUNT 4.5 K/uL (4.8-10.8)
[2017-08-26 08:38] LABS: ALB/GLOB RATIO 1.2 (1.0-2.1); ALKALINE PHOSPHATASE 72 U/L (38-126); ALT/SGPT 46 U/L (21-72); AST/SGOT 44 U/L (17-59); BILIRUBIN,TOTAL 0.6 mg/dL (0.2-1.3); BLOOD UREA NITROGEN 12 mg/dL (9-20); CARBON DIOXIDE 32 mmol/L (22-30); CHLORIDE 101 mmol/L (98-107); GFR AFRICAN-AMERICAN > 60; GLUCOSE,RANDOM 105 mg/dL (75-110); POTASSIUM 3.5 mmol/L (3.6-5.2); SODIUM 139 mmol/L (132-148)
[2017-08-26] MEDS: Pantoprazole 40 mg EC Tab PO SCH ×2 (10:12→17:12)
[2017-08-26] MEDS: Multiple Vitamins Tab PO SCH (10:13)
[2017-08-26] MEDS: Enoxaparin 40 mg Syringe SC SCH (10:13)
--- NOTE | 2017-08-26 10:21 | CP.PCM.PN ---
<MarleySaray - Last Filed: 08/26/17 17:29> Subjective - Date & Time of Evaluation Date of Evaluation: 08/26/17 Time of Evaluation: 07:00 - Subjective Subjective: General Surgery Dr. Sandoval Objective - Vital Signs/Intake and Output Vital Signs (last 24 hours): Temp Pulse Resp BP Pulse Ox 97.4 F L 107 H 21 126/77 94 L 08/26/17 08:18 08/26/17 08:18 08/26/17 08:18 08/26/17 08:18 08/26/17 08:18 Intake and Output: 08/26/17 08/26/17 06:59 18:59 Intake Total 120 Balance 120 - Medications Medications: Current Medications Chlordiazepoxide (Librium) 25 mg PO TID [facility] PRN Reason: Taper Stop: 08/28/17 17:59 Last Admin: 08/25/17 18:24 Dose: 25 mg Diphenhydramine HCl (Benadryl) 25 mg IVP Q8H PRN PRN Reason: Itching / Pruritus Docusate Sodium (Colace) 100 mg PO BID [facility] Last Admin: 08/25/17 18:25 Dose: Not Given Enoxaparin Sodium (Lovenox) 40 mg SC DAILY [facility] Last Admin: 08/25/17 10:12 Dose: 40 mg Folic Acid (Folic Acid) 1 mg PO DAILY [facility] Last Admin: 08/25/17 10:12 Dose: 1 mg Guaifenesin/Codeine Phosphate (Guaifenesin/Codeine) 10 ml PO Q4H PRN PRN Reason: Cough and congestion Last Admin: 08/25/17 10:11 Dose: 10 ml Hydromorphone HCl (Dilaudid) 1 mg IVP Q8H PRN PRN Reason: Pain, moderate (4-7) Multivitamins (Hexavitamin) 1 tab PO DAILY [facility] Last Admin: 08/25/17 10:12 Dose: 1 tab Ondansetron HCl (Zofran Odt) 4 mg PO Q4 PRN PRN Reason: Nausea/Vomiting Pantoprazole Sodium (Protonix Ec Tab) 40 mg PO BID [facility] Last Admin: 08/25/17 18:24 Dose: 40 mg Pneumococcal Polyvalent Vaccine (Pneumovax 23 Vaccine) 0.5 ml IM .ONCE ONE Stop: 08/27/17 10:01 Tamsulosin HCl (Flomax) 0.8 mg PO DAILY [facility] Last Admin: 08/25/17 14:22 Dose: 0.8 mg Thiamine HCl (Vitamin B1 Tab) 100 mg PO DAILY [facility] Last Admin: 08/25/17 10:12 Dose: 100 mg Trazodone HCl (Desyrel) 50 mg PO HS PRN PRN Reason: Insomnia - Labs Labs: 08/26/17 08:07 08/26/17 08:07 Assessment and Plan - Assessment and Plan (Free Text) Assessment: 62 y/o M w/ grade IV paraesophageal hernia - f/u cardiology for risk stratification - recommending EGD; f/u GI recs - ADAT - f/u GI series w/ gastrograffin - cont medical management Pt discussed with Dr. Lori Roach DO PGY2 <Foreign Sandoval - Last Filed: 08/26/17 22:19> Objective - Vital Signs/Intake and Output Vital Signs (last 24 hours): Temp Pulse Resp BP Pulse Ox 98.2 F 81 20 107/67 95 08/26/17 16:00 08/26/17 16:00 08/26/17 16:00 08/26/17 16:00 08/26/17 16:00 - Medications Medications: Current Medications Calcium Carbonate (Tums) 500 mg PO BID [facility] Last Admin: 08/26/17 17:12 Dose: 500 mg Chlordiazepoxide (Librium) 25 mg PO BID [facility] PRN Reason: Taper Stop: 08/28/17 17:59 Last Admin: 08/26/17 17:12 Dose: 25 mg Diphenhydramine HCl (Benadryl) 25 mg IVP Q8H PRN PRN Reason: Itching / Pruritus Docusate Sodium (Colace) 100 mg PO BID [facility] Last Admin: 08/26/17 17:12 Dose: 100 mg Enoxaparin Sodium (Lovenox) 40 mg SC DAILY [facility] Last Admin: 08/26/17 10:13 Dose: 40 mg Folic Acid (Folic Acid) 1 mg PO DAILY [facility] Last Admin: 08/26/17 10:13 Dose: 1 mg Guaifenesin/Codeine Phosphate (Guaifenesin/Codeine) 10 ml PO Q4H PRN PRN Reason: Cough and congestion Last Admin: 08/25/17 10:11 Dose: 10 ml Hydromorphone HCl (Dilaudid) 1 mg IVP Q8H PRN PRN Reason: Pain, moderate (4-7) Multivitamins (Hexavitamin) 1 tab PO DAILY [facility] Last Admin: 08/26/17 10:13 Dose: 1 tab Ondansetron HCl (Zofran Odt) 4 mg PO Q4 PRN PRN Reason: Nausea/Vomiting Pantoprazole Sodium (Protonix Ec Tab) 40 mg PO BID [facility] Last Admin: 08/26/17 17:12 Dose: 40 mg Pneumococcal Polyvalent Vaccine (Pneumovax 23 Vaccine) 0.5 ml IM .ONCE ONE Stop: 08/27/17 10:01 Potassium Chloride (Potassium Chloride Oral Soln) 20 meq PO Q2 [facility] Last Admin: 08/26/17 21:09 Dose: 20 meq Tamsulosin HCl (Flomax) 0.8 mg PO DAILY [facility] Last Admin: 08/26/17 10:12 Dose: 0.8 mg Thiamine HCl (Vitamin B1 Tab) 100 mg PO DAILY [facility] Last Admin: 08/26/17 10:13 Dose: 100 mg Trazodone HCl (Desyrel) 50 mg PO HS PRN PRN Reason: Insomnia - Labs Labs: 08/26/17 08:07 08/26/17 08:07 Attending/Attestation - Attestation I have personally seen and examined this patient.: Yes I have fully participated in the care of the patient.: Yes I have reviewed all pertinent clinical information, including history, physical exam and plan: Yes Notes (Text): Pt was seen and examined at bedside Agree with above note and assessment Pt with abdominal pain, ETOH abuse, Large Hiatal hernia c.w current mx for ETOH withdrawal GI consult for EGD Upper GI series Plan d/w pt in detail Plan d.w PMD Risk and benefit explained in detail.
--- NOTE | 2017-08-26 11:23 | CP.PCM.PN ---
<Irving Dobbs - Last Filed: 08/26/17 16:44> Subjective - Date & Time of Evaluation Date of Evaluation: 08/26/17 Time of Evaluation: 07:40 - Subjective Subjective: PGY2 Resident - Medicine Progress Note Patient seen and examined at bedside. No acute distress. No overnight events. He reports feeling constipated, however colace is helping. He reports mild abdominal pain related to his type 4 paraesophageal hernia. No signs of alcohol withdrawal, not seizures or DTs. Denies fever, chills, headache, changes in vision, chest pain, palpitations, dyspnea, cough, abdominal pain, nausea/ vomiting, diarrhea or any additional acute complaints. Objective - Vital Signs/Intake and Output Vital Signs (last 24 hours): Temp Pulse Resp BP Pulse Ox 97.4 F L 107 H 21 126/77 94 L 08/26/17 08:18 08/26/17 08:18 08/26/17 08:18 08/26/17 08:18 08/26/17 08:18 Intake and Output: 08/26/17 08/26/17 06:59 18:59 Intake Total 120 Balance 120 - Medications Medications: Current Medications Chlordiazepoxide (Librium) 25 mg PO TID [facility] PRN Reason: Taper Stop: 08/28/17 17:59 Last Admin: 08/26/17 10:13 Dose: 25 mg Diphenhydramine HCl (Benadryl) 25 mg IVP Q8H PRN PRN Reason: Itching / Pruritus Docusate Sodium (Colace) 100 mg PO BID [facility] Last Admin: 08/26/17 10:13 Dose: 100 mg Enoxaparin Sodium (Lovenox) 40 mg SC DAILY [facility] Last Admin: 08/26/17 10:13 Dose: 40 mg Folic Acid (Folic Acid) 1 mg PO DAILY [facility] Last Admin: 08/26/17 10:13 Dose: 1 mg Guaifenesin/Codeine Phosphate (Guaifenesin/Codeine) 10 ml PO Q4H PRN PRN Reason: Cough and congestion Last Admin: 08/25/17 10:11 Dose: 10 ml Hydromorphone HCl (Dilaudid) 1 mg IVP Q8H PRN PRN Reason: Pain, moderate (4-7) Multivitamins (Hexavitamin) 1 tab PO DAILY [facility] Last Admin: 08/26/17 10:13 Dose: 1 tab Ondansetron HCl (Zofran Odt) 4 mg PO Q4 PRN PRN Reason: Nausea/Vomiting Pantoprazole Sodium (Protonix Ec Tab) 40 mg PO BID [facility] Last Admin: 08/26/17 10:12 Dose: 40 mg Pneumococcal Polyvalent Vaccine (Pneumovax 23 Vaccine) 0.5 ml IM .ONCE ONE Stop: 08/27/17 10:01 Tamsulosin HCl (Flomax) 0.8 mg PO DAILY [facility] Last Admin: 08/26/17 10:12 Dose: 0.8 mg Thiamine HCl (Vitamin B1 Tab) 100 mg PO DAILY [facility] Last Admin: 08/26/17 10:13 Dose: 100 mg Trazodone HCl (Desyrel) 50 mg PO HS PRN PRN Reason: Insomnia - Labs Labs: 08/26/17 08:07 08/26/17 08:07 - Additional Findings Additional findings: - Constitutional Appears: Well, Non-toxic - Head Exam Head Exam: ATRAUMATIC - Eye Exam Eye Exam: EOMI, Normal appearance - ENT Exam ENT Exam: Mucous Membranes Moist - Neck Exam Neck Exam: Full ROM - Respiratory Exam Respiratory Exam: Clear to Ausculation Bilateral - Cardiovascular Exam Cardiovascular Exam: REGULAR RHYTHM - GI/Abdominal Exam GI & Abdominal Exam: Soft - Extremities Exam Extremities Exam: Full ROM. absent: Calf Tenderness - Back Exam Back Exam: absent: CVA tenderness (L), CVA tenderness (R) - Neurological Exam Neurological Exam: Alert, Awake, Oriented x3 - Psychiatric Exam Psychiatric exam: Normal Affect - Skin Skin Exam: Warm Assessment and Plan - Assessment and Plan (Free Text) Assessment: 62yo M admitted for EtOH Withdrawl EtOH Withdrawal -Thiamine/Folate daily -Librium Taper -once stable patient can be d/c home/to outpatient rehab as per psych -patient is not in DT/having seizures/actively withdrawing on current taper -patient is tolerating PO Pancytopenia most likely 2/2 to crhonic EtOH Bone marrow toxicity -patient has no active bleeding -will continue to monitor; patient advised to stop drinking Type 4 paraesophageal hernia -patient will likely need surgical repair; pending surgical consult -patient needs to be medically optimized before surgery; f/u echo and Dr. Humphrey cardio recs Electrolyte Imbalance 08/26: Hypokalemia, K3.5 - repleted Proph Protonix Lovenox Heart Healthy Diet All management as per Dr. Marin Owusu Disposition: d/c planning; patient is pending echo read. Likely discharge . Elective surgery as outpatient. Case discussed with attending. All medical management as per Dr. Marin Owusu <Jeremi Owusu - Last Filed: 08/29/17 11:45> Objective - Vital Signs/Intake and Output Vital Signs (last 24 hours): Temp Pulse Resp BP Pulse Ox 99.1 F 67 20 107/67 95 08/28/17 23:00 08/28/17 23:00 08/28/17 23:00 08/28/17 23:00 08/28/17 23:00 Intake and Output: 08/29/17 08/29/17 06:59 18:59 Intake Total 400 610 Balance 400 610 - Medications Medications: Current Medications Calcium Carbonate (Tums) 500 mg PO BID [facility] Last Admin: 08/29/17 10:35 Dose: 500 mg Diphenhydramine HCl (Benadryl) 25 mg IVP Q8H PRN PRN Reason: Itching / Pruritus Docusate Sodium (Colace) 100 mg PO BID [facility] Last Admin: 08/29/17 10:34 Dose: 100 mg Enoxaparin Sodium (Lovenox) 40 mg SC DAILY [facility] Last Admin: 08/29/17 10:36 Dose: 40 mg Folic Acid (Folic Acid) 1 mg PO DAILY [facility] Last Admin: 08/29/17 10:35 Dose: 1 mg Guaifenesin/Codeine Phosphate (Guaifenesin/Codeine) 10 ml PO Q4H PRN PRN Reason: Cough and congestion Last Admin: 08/28/17 20:53 Dose: 10 ml Multivitamins (Hexavitamin) 1 tab PO DAILY [facility] Last Admin: 08/29/17 10:34 Dose: 1 tab Ondansetron HCl (Zofran Odt) 4 mg PO Q4 PRN PRN Reason: Nausea/Vomiting Pantoprazole Sodium (Protonix Ec Tab) 40 mg PO DAILY [facility] Last Admin: 08/29/17 10:35 Dose: 40 mg Tamsulosin HCl (Flomax) 0.8 mg PO DAILY [facility] Last Admin: 08/29/17 10:35 Dose: 0.8 mg Thiamine HCl (Vitamin B1 Tab) 100 mg PO DAILY [facility] Last Admin: 08/29/17 10:35 Dose: 100 mg Trazodone HCl (Desyrel) 50 mg PO HS PRN PRN Reason: Insomnia - Labs Labs: 08/27/17 11:52 08/27/17 11:52 Assessment and Plan (1) Abdominal pain Status: Acute (2) Alcohol intoxication Status: Acute (3) Anemia Status: Acute (4) HTN (hypertension) Status: Acute (5) Hiatal hernia without gangrene and obstruction Status: Acute (6) Withdrawal symptoms, alcohol Status: Acute Attending/Attestation - Attestation I have personally seen and examined this patient.: Yes I have fully participated in the care of the patient.: Yes I have reviewed all pertinent clinical information, including history, physical exam and plan: Yes Notes (Text): Patient examined. No acute overnight events. Mild abdominal pain present. Continue Librium, thiamine, multivitamins and folic acid. Continue supportive care.
[2017-08-26] MEDS: Calcium Carbonate 500 mg Chewable Antacid Tab PO SCH ×2 (15:27→17:12)
[2017-08-26] MEDS ORDERED: Potassium Chloride 20 mEq/15 ml LIQ UD PO ONE (16:14)
--- NOTE | 2017-08-26 18:20 | CP.PCM.PN ---
Subjective - Date & Time of Evaluation Date of Evaluation: 08/26/17 Time of Evaluation: 18:15 - Subjective Subjective: echocardiogrma reviewed. Norml left ventricular function and no regional wall motion abnormalities.. No cardiovascular contraindication to the planned surgery. Objective - Vital Signs/Intake and Output Vital Signs (last 24 hours): Temp Pulse Resp BP Pulse Ox 98.2 F 81 20 107/67 95 08/26/17 16:00 08/26/17 16:00 08/26/17 16:00 08/26/17 16:00 08/26/17 16:00 Intake and Output: 08/26/17 08/26/17 06:59 18:59 Intake Total 120 Balance 120 - Medications Medications: Current Medications Calcium Carbonate (Tums) 500 mg PO BID [facility] Last Admin: 08/26/17 17:12 Dose: 500 mg Chlordiazepoxide (Librium) 25 mg PO BID [facility] PRN Reason: Taper Stop: 08/28/17 17:59 Last Admin: 08/26/17 17:12 Dose: 25 mg Diphenhydramine HCl (Benadryl) 25 mg IVP Q8H PRN PRN Reason: Itching / Pruritus Docusate Sodium (Colace) 100 mg PO BID [facility] Last Admin: 08/26/17 17:12 Dose: 100 mg Enoxaparin Sodium (Lovenox) 40 mg SC DAILY [facility] Last Admin: 08/26/17 10:13 Dose: 40 mg Folic Acid (Folic Acid) 1 mg PO DAILY [facility] Last Admin: 08/26/17 10:13 Dose: 1 mg Guaifenesin/Codeine Phosphate (Guaifenesin/Codeine) 10 ml PO Q4H PRN PRN Reason: Cough and congestion Last Admin: 08/25/17 10:11 Dose: 10 ml Hydromorphone HCl (Dilaudid) 1 mg IVP Q8H PRN PRN Reason: Pain, moderate (4-7) Multivitamins (Hexavitamin) 1 tab PO DAILY [facility] Last Admin: 08/26/17 10:13 Dose: 1 tab Ondansetron HCl (Zofran Odt) 4 mg PO Q4 PRN PRN Reason: Nausea/Vomiting Pantoprazole Sodium (Protonix Ec Tab) 40 mg PO BID [facility] Last Admin: 08/26/17 17:12 Dose: 40 mg Pneumococcal Polyvalent Vaccine (Pneumovax 23 Vaccine) 0.5 ml IM .ONCE ONE Stop: 08/27/17 10:01 Tamsulosin HCl (Flomax) 0.8 mg PO DAILY [facility] Last Admin: 08/26/17 10:12 Dose: 0.8 mg Thiamine HCl (Vitamin B1 Tab) 100 mg PO DAILY [facility] Last Admin: 08/26/17 10:13 Dose: 100 mg Trazodone HCl (Desyrel) 50 mg PO HS PRN PRN Reason: Insomnia - Labs Labs: 08/26/17 08:07 08/26/17 08:07 Assessment and Plan (1) HTN (hypertension) Status: Acute (2) Hiatal hernia without gangrene and obstruction Status: Acute
--- NOTE | 2017-08-26 19:59 | CP.PCM.PN ---
Subjective - Date & Time of Evaluation Date of Evaluation: 08/26/17 Time of Evaluation: 10:20 - Subjective Subjective: clinically same Objective - Vital Signs/Intake and Output Vital Signs (last 24 hours): Temp Pulse Resp BP Pulse Ox 98.2 F 81 20 107/67 95 08/26/17 16:00 08/26/17 16:00 08/26/17 16:00 08/26/17 16:00 08/26/17 16:00 - Medications Medications: Current Medications Calcium Carbonate (Tums) 500 mg PO BID [facility] Last Admin: 08/26/17 17:12 Dose: 500 mg Chlordiazepoxide (Librium) 25 mg PO BID [facility] PRN Reason: Taper Stop: 08/28/17 17:59 Last Admin: 08/26/17 17:12 Dose: 25 mg Diphenhydramine HCl (Benadryl) 25 mg IVP Q8H PRN PRN Reason: Itching / Pruritus Docusate Sodium (Colace) 100 mg PO BID [facility] Last Admin: 08/26/17 17:12 Dose: 100 mg Enoxaparin Sodium (Lovenox) 40 mg SC DAILY [facility] Last Admin: 08/26/17 10:13 Dose: 40 mg Folic Acid (Folic Acid) 1 mg PO DAILY [facility] Last Admin: 08/26/17 10:13 Dose: 1 mg Guaifenesin/Codeine Phosphate (Guaifenesin/Codeine) 10 ml PO Q4H PRN PRN Reason: Cough and congestion Last Admin: 08/25/17 10:11 Dose: 10 ml Hydromorphone HCl (Dilaudid) 1 mg IVP Q8H PRN PRN Reason: Pain, moderate (4-7) Multivitamins (Hexavitamin) 1 tab PO DAILY [facility] Last Admin: 08/26/17 10:13 Dose: 1 tab Ondansetron HCl (Zofran Odt) 4 mg PO Q4 PRN PRN Reason: Nausea/Vomiting Pantoprazole Sodium (Protonix Ec Tab) 40 mg PO BID [facility] Last Admin: 08/26/17 17:12 Dose: 40 mg Pneumococcal Polyvalent Vaccine (Pneumovax 23 Vaccine) 0.5 ml IM .ONCE ONE Stop: 08/27/17 10:01 Potassium Chloride (Potassium Chloride Oral Soln) 20 meq PO Q2 [facility] Tamsulosin HCl (Flomax) 0.8 mg PO DAILY [facility] Last Admin: 08/26/17 10:12 Dose: 0.8 mg Thiamine HCl (Vitamin B1 Tab) 100 mg PO DAILY [facility] Last Admin: 08/26/17 10:13 Dose: 100 mg Trazodone HCl (Desyrel) 50 mg PO HS PRN PRN Reason: Insomnia - Labs Labs: 08/26/17 08:07 08/26/17 08:07 - Constitutional Appears: Well - Head Exam Head Exam: ATRAUMATIC, NORMAL INSPECTION, NORMOCEPHALIC - Eye Exam Eye Exam: EOMI, Normal appearance, PERRL Pupil Exam: NORMAL ACCOMODATION, PERRL - ENT Exam ENT Exam: Mucous Membranes Moist, Normal Exam - Neck Exam Neck Exam: Full ROM, Normal Inspection. absent: Lymphadenopathy - Respiratory Exam Respiratory Exam: Decreased Breath Sounds - Cardiovascular Exam Cardiovascular Exam: REGULAR RHYTHM, +S1, +S2 - GI/Abdominal Exam GI & Abdominal Exam: Soft, Diminished Bowel Sounds - Rectal Exam Rectal Exam: Deferred Assessment and Plan (1) Abdominal pain Status: Acute (2) Alcohol intoxication Status: Acute (3) Anemia Status: Acute (4) HTN (hypertension) Status: Acute (5) Hiatal hernia without gangrene and obstruction Status: Acute (6) Withdrawal symptoms, alcohol Status: Acute - Assessment and Plan (Free Text) Plan: Patient examined. 2D echo suggestive of normal. Continue Librium, multivitamins, folic acid and thiamine. Continue supportive care.
[2017-08-26] MEDS: Potassium Chloride 20 mEq/15 ml LIQ UD PO SCH ×2 (21:01→21:09)
[2017-08-27] MEDS ORDERED: Potassium Chloride 20 mEq/15 ml LIQ UD PO SCH (01:00)
[2017-08-27] MEDS ORDERED: Potassium Chloride 20 mEq/15 ml LIQ UD PO ONE (03:15)
[2017-08-27] MEDS: Pantoprazole 40 mg EC Tab PO SCH ×2 (09:08→17:08)
[2017-08-27] MEDS: Multiple Vitamins Tab PO SCH (09:08)
[2017-08-27] MEDS: Calcium Carbonate 500 mg Chewable Antacid Tab PO SCH ×2 (09:08→17:08)
[2017-08-27] MEDS: Enoxaparin 40 mg Syringe SC SCH (09:09)
[2017-08-27] MEDS ORDERED: Influenza Vaccine 60 mcg/0.5 mL SYR (4YR UP) IM ONE (10:00)
[2017-08-27] MEDS ORDERED: Pneumococcal 23-Valent Vaccine IM ONE (10:00)
--- NOTE | 2017-08-27 10:27 | CARD ---
APPROVED REPORT EKG Measurement Heart [id number] <Conclusion> Normal sinus rhythm Possible Left atrial enlargement Nonspecific ST abnormality Abnormal ECG
[2017-08-27 12:11] LABS: BASO % 0.6 % (0.0-2.0); EOS # 0.3 K/uL (0.0-0.7); EOS % 3.7 % (0.0-4.0); HEMATOCRIT 28.8 % (35.0-51.0); LYMPH # 1.8 K/uL (1.0-4.3); LYMPH % 26.6 % (20.0-40.0); MEAN CELL VOLUME 73.9 fL (80.0-94.0); MEAN CORPUSCULAR HEMOGLOBIN 22.3 pg (27.0-31.0); MEAN CORPUSCULAR HGB CONC 30.2 g/dL (33.0-37.0); MEAN PLATELET VOLUME 8.4 fL (7.2-11.7); NRBC % 0.2 % (0.0-2.0); RED CELL DISTRIBUTION WIDTH 20.9 % (11.5-14.5)
[2017-08-27 12:14] LABS: WHITE BLOOD COUNT 6.8 K/uL (4.8-10.8)
[2017-08-27 12:27] LABS: ALB/GLOB RATIO 0.9 (1.0-2.1); ALKALINE PHOSPHATASE 85 U/L (38-126); ALT/SGPT 49 U/L (21-72); AST/SGOT 33 U/L (17-59); BILIRUBIN,TOTAL 0.4 mg/dL (0.2-1.3); BLOOD UREA NITROGEN 14 mg/dL (9-20); CALCIUM 8.4 mg/dl (8.6-10.4); CARBON DIOXIDE 30 mmol/L (22-30); CHLORIDE 103 mmol/L (98-107); GFR AFRICAN-AMERICAN > 60; GLUCOSE,RANDOM 102 mg/dL (75-110); POTASSIUM 4.1 mmol/L (3.6-5.2); SODIUM 136 mmol/L (132-148); TOTAL PROTEIN 7.2 g/dL (6.3-8.3)
--- NOTE | 2017-08-27 18:32 | CP.PCM.PN ---
Subjective - Date & Time of Evaluation Date of Evaluation: 08/27/17 Time of Evaluation: 09:00 - Subjective Subjective: clinically same Objective - Vital Signs/Intake and Output Vital Signs (last 24 hours): Temp Pulse Resp BP Pulse Ox 98.5 F 82 18 129/82 96 08/27/17 16:00 08/27/17 16:00 08/27/17 16:00 08/27/17 16:00 08/27/17 16:00 Intake and Output: 08/27/17 08/27/17 06:59 18:59 Intake Total 400 480 Balance 400 480 - Medications Medications: Current Medications Calcium Carbonate (Tums) 500 mg PO BID [facility] Last Admin: 08/27/17 17:08 Dose: 500 mg Chlordiazepoxide (Librium) 25 mg PO DAILY [facility] PRN Reason: Taper Stop: 08/28/17 17:59 Last Admin: 08/27/17 09:09 Dose: 25 mg Diphenhydramine HCl (Benadryl) 25 mg IVP Q8H PRN PRN Reason: Itching / Pruritus Docusate Sodium (Colace) 100 mg PO BID [facility] Last Admin: 08/27/17 17:08 Dose: 100 mg Enoxaparin Sodium (Lovenox) 40 mg SC DAILY [facility] Last Admin: 08/27/17 09:09 Dose: 40 mg Folic Acid (Folic Acid) 1 mg PO DAILY [facility] Last Admin: 08/27/17 09:09 Dose: 1 mg Guaifenesin/Codeine Phosphate (Guaifenesin/Codeine) 10 ml PO Q4H PRN PRN Reason: Cough and congestion Last Admin: 08/25/17 10:11 Dose: 10 ml Hydromorphone HCl (Dilaudid) 1 mg IVP Q8H PRN PRN Reason: Pain, moderate (4-7) Multivitamins (Hexavitamin) 1 tab PO DAILY [facility] Last Admin: 08/27/17 09:08 Dose: 1 tab Ondansetron HCl (Zofran Odt) 4 mg PO Q4 PRN PRN Reason: Nausea/Vomiting Pantoprazole Sodium (Protonix Ec Tab) 40 mg PO BID [facility] Last Admin: 08/27/17 17:08 Dose: 40 mg Tamsulosin HCl (Flomax) 0.8 mg PO DAILY [facility] Last Admin: 08/27/17 09:08 Dose: 0.8 mg Thiamine HCl (Vitamin B1 Tab) 100 mg PO DAILY [facility] Last Admin: 08/27/17 09:08 Dose: 100 mg Trazodone HCl (Desyrel) 50 mg PO HS PRN PRN Reason: Insomnia - Labs Labs: 08/27/17 11:52 08/27/17 11:52 - Constitutional Appears: Well - Head Exam Head Exam: ATRAUMATIC, NORMAL INSPECTION, NORMOCEPHALIC - Eye Exam Eye Exam: EOMI, Normal appearance, PERRL Pupil Exam: NORMAL ACCOMODATION, PERRL - ENT Exam ENT Exam: Mucous Membranes Moist, Normal Exam - Neck Exam Neck Exam: Full ROM, Normal Inspection. absent: Lymphadenopathy - Respiratory Exam Respiratory Exam: Clear to Ausculation Bilateral, NORMAL BREATHING PATTERN - Cardiovascular Exam Cardiovascular Exam: REGULAR RHYTHM, +S1, +S2. absent: Murmur - GI/Abdominal Exam GI & Abdominal Exam: Soft, Normal Bowel Sounds. absent: Tenderness - Rectal Exam Rectal Exam: Deferred - Extremities Exam Extremities Exam: Full ROM, Normal Capillary Refill, Normal Inspection. absent : Joint Swelling, Pedal Edema - Back Exam Back Exam: NORMAL INSPECTION Assessment and Plan (1) Abdominal pain Status: Acute (2) Alcohol intoxication Status: Acute (3) Anemia Status: Acute (4) HTN (hypertension) Status: Acute (5) Hiatal hernia without gangrene and obstruction Status: Acute (6) Withdrawal symptoms, alcohol Status: Acute - Assessment and Plan (Free Text) Plan: Patient examined. Patient better. Continue folic acid, thiamine, multivitamins and Librium. Patient wants to go home to pay his rent. Patient will be reviewed.
--- NOTE | 2017-08-27 22:36 | CP.PCM.PN ---
<DominikNas - Last Filed: 08/27/17 22:33> Subjective - Date & Time of Evaluation Date of Evaluation: 08/27/17 Time of Evaluation: 07:40 - Subjective Subjective: Surgery Progress note. Dr. Sandoval. Pt seen and examined at bedside. No acute events overnight. Denies any new complaints. States that, overall, he feels better. No F/C. No N/V/D. Patient states that he would like to leave AMA in order to "pay rent in order to not be evicted." Attending, Dr. Owusu notified and states that he will address with the patient. Objective - Vital Signs/Intake and Output Vital Signs (last 24 hours): Temp Pulse Resp BP Pulse Ox 98.5 F 82 18 129/82 96 08/27/17 16:00 08/27/17 16:00 08/27/17 16:00 08/27/17 16:00 08/27/17 16:00 Intake and Output: 08/27/17 08/28/17 18:59 06:59 Intake Total 480 Balance 480 - Medications Medications: Current Medications Calcium Carbonate (Tums) 500 mg PO BID [facility] Last Admin: 08/27/17 17:08 Dose: 500 mg Chlordiazepoxide (Librium) 25 mg PO DAILY [facility] PRN Reason: Taper Stop: 08/28/17 17:59 Last Admin: 08/27/17 09:09 Dose: 25 mg Diphenhydramine HCl (Benadryl) 25 mg IVP Q8H PRN PRN Reason: Itching / Pruritus Docusate Sodium (Colace) 100 mg PO BID [facility] Last Admin: 08/27/17 17:08 Dose: 100 mg Enoxaparin Sodium (Lovenox) 40 mg SC DAILY [facility] Last Admin: 08/27/17 09:09 Dose: 40 mg Folic Acid (Folic Acid) 1 mg PO DAILY [facility] Last Admin: 08/27/17 09:09 Dose: 1 mg Guaifenesin/Codeine Phosphate (Guaifenesin/Codeine) 10 ml PO Q4H PRN PRN Reason: Cough and congestion Last Admin: 08/25/17 10:11 Dose: 10 ml Hydromorphone HCl (Dilaudid) 1 mg IVP Q8H PRN PRN Reason: Pain, moderate (4-7) Multivitamins (Hexavitamin) 1 tab PO DAILY [facility] Last Admin: 08/27/17 09:08 Dose: 1 tab Ondansetron HCl (Zofran Odt) 4 mg PO Q4 PRN PRN Reason: Nausea/Vomiting Pantoprazole Sodium (Protonix Ec Tab) 40 mg PO BID [facility] Last Admin: 08/27/17 17:08 Dose: 40 mg Tamsulosin HCl (Flomax) 0.8 mg PO DAILY [facility] Last Admin: 08/27/17 09:08 Dose: 0.8 mg Thiamine HCl (Vitamin B1 Tab) 100 mg PO DAILY [facility] Last Admin: 08/27/17 09:08 Dose: 100 mg Trazodone HCl (Desyrel) 50 mg PO HS PRN PRN Reason: Insomnia - Labs Labs: 08/27/17 11:52 08/27/17 11:52 - Constitutional Appears: Non-toxic, No Acute Distress - Head Exam Head Exam: ATRAUMATIC, NORMAL INSPECTION, NORMOCEPHALIC - Eye Exam Eye Exam: EOMI - ENT Exam ENT Exam: Mucous Membranes Moist - Respiratory Exam Respiratory Exam: NORMAL BREATHING PATTERN. absent: Accessory Muscle Use, Respiratory Distress - Cardiovascular Exam Cardiovascular Exam: RRR. absent: JVD - GI/Abdominal Exam GI & Abdominal Exam: Soft. absent: Distended, Firm, Guarding, Rigid, Tenderness - Extremities Exam Extremities Exam: Normal Inspection. absent: Calf Tenderness - Neurological Exam Neurological Exam: Alert, Awake, Oriented x3 - Psychiatric Exam Psychiatric exam: Anxious - Skin Skin Exam: Dry, Intact, Normal Color, Warm Assessment and Plan - Assessment and Plan (Free Text) Assessment: 62yo M with Grade IV paraesophageal hernia - Recommend GI consult for possible EGD for further evaluation - Cardiology clearance noted - Pending upper GI series with gastrograffin - Continue current medical management Further recs as per Dr. Lori Lehman PGY1 surgery pager: [phone] <Foreign Sandoval - Last Filed: 08/28/17 22:16> Objective - Vital Signs/Intake and Output Vital Signs (last 24 hours): Temp Pulse Resp BP Pulse Ox 98.4 F 81 20 132/83 97 08/28/17 20:54 08/28/17 20:54 08/28/17 20:54 08/28/17 20:54 08/28/17 20:54 Intake and Output: 08/28/17 08/29/17 18:59 06:59 Intake Total 480 Balance 480 - Medications Medications: Current Medications Calcium Carbonate (Tums) 500 mg PO BID [facility] Last Admin: 08/28/17 18:28 Dose: 500 mg Diphenhydramine HCl (Benadryl) 25 mg IVP Q8H PRN PRN Reason: Itching / Pruritus Docusate Sodium (Colace) 100 mg PO BID [facility] Last Admin: 08/28/17 17:13 Dose: 100 mg Enoxaparin Sodium (Lovenox) 40 mg SC DAILY [facility] Last Admin: 08/28/17 09:03 Dose: 40 mg Folic Acid (Folic Acid) 1 mg PO DAILY [facility] Last Admin: 08/28/17 09:03 Dose: 1 mg Guaifenesin/Codeine Phosphate (Guaifenesin/Codeine) 10 ml PO Q4H PRN PRN Reason: Cough and congestion Last Admin: 08/28/17 20:53 Dose: 10 ml Multivitamins (Hexavitamin) 1 tab PO DAILY [facility] Last Admin: 08/28/17 09:03 Dose: 1 tab Ondansetron HCl (Zofran Odt) 4 mg PO Q4 PRN PRN Reason: Nausea/Vomiting Pantoprazole Sodium (Protonix Ec Tab) 40 mg PO DAILY [facility] Last Admin: 08/28/17 09:03 Dose: 40 mg Tamsulosin HCl (Flomax) 0.8 mg PO DAILY [facility] Last Admin: 08/28/17 09:03 Dose: 0.8 mg Thiamine HCl (Vitamin B1 Tab) 100 mg PO DAILY [facility] Last Admin: 08/28/17 09:03 Dose: 100 mg Trazodone HCl (Desyrel) 50 mg PO HS PRN PRN Reason: Insomnia - Labs Labs: 08/27/17 11:52 08/27/17 11:52 Attending/Attestation - Attestation I have personally seen and examined this patient.: Yes I have fully participated in the care of the patient.: Yes I have reviewed all pertinent clinical information, including history, physical exam and plan: Yes Notes (Text): Pt was seen and examined at bedside Agree with above note and assessment Pt is improving clinically No c/o abdominal pain, Non tender Pt wants to go home GI consult for EGD Upper GI series c.w current mx f/u as out pt Plan d.w pt in detail. Risk and benefit explained in detail.
--- NOTE | 2017-08-28 00:48 | CARD ---
APPROVED REPORT EXAM: Two-dimensional and M-mode echocardiogram with Doppler and color Doppler. Other Information Quality : GoodRhythm : INDICATION cardiac clearance RISK FACTORS Hypertension 2D DIMENSIONS IVSd0.7 (0.7-1.1cm)LVDd5.5 (3.9-5.9cm) PWd1.0 (0.7-1.1cm)LVDs3.6 (2.5-4.0cm) FS (%) 35.0 %LVEF (%)63.7 (>50%) Mitral Valve MV E Ixssebcy06.7cm/sMV A Wvlfwthu623.1cm/sE/A ratio0.7 TDI E/Lateral E'0.0E/Medial E'0.0 Tricuspid Valve TR Peak Pzshctoj915zr/sTR Peak Gr.[id number] LEFT VENTRICLE The left ventricle is normal size. There is normal left ventricular wall thickness. Left ventricle systolic function is normal. The Ejection Fraction is 60-65%. There is normal LV segmental wall motion. The left ventricular diastolic function is abnormal. Transmitral Doppler flow pattern is Grade I-abnormal relaxation pattern. No left ventricle thrombus noted on this study. RIGHT VENTRICLE The right ventricle is normal size. The right ventricular systolic function is normal. ATRIA The left atrium size is normal. The right atrium size is normal. AORTIC VALVE The aortic valve is mildly thickened. The aortic valve is trileaflet. No aortic regurgitation is present. There is no aortic valvular stenosis. There is no aortic valvular vegetation. MITRAL VALVE Mitral annular calcification is mild. There is no evidence of mitral valve prolapse. There is no mitral valve stenosis. There is no mitral valve regurgitation noted. TRICUSPID VALVE The tricuspid valve is normal in structure. There is mild tricuspid regurgitation. Right ventricular systolic pressure is estimated at 30-40 mmHg. There is no pulmonary hypertension. There is no tricuspid valve prolapse or vegetation. There is no tricuspid valve stenosis. PULMONIC VALVE The pulmonic valve is not well visualized. There is no pulmonic valvular regurgitation. GREAT VESSELS The aortic root is normal in size. The IVC is normal in size and collapses >50% with inspiration. PERICARDIAL EFFUSION There is no pericardial effusion. There is no pleural effusion. <Conclusion> The left ventricle is normal size. Left ventricle systolic function is normal. The Ejection Fraction is 60-65%. The left ventricular diastolic function is abnormal. Transmitral Doppler flow pattern is Grade I-abnormal relaxation pattern. The right ventricle is normal size. The right ventricular systolic function is normal. The left atrium size is normal. The right atrium size is normal. There is mild tricuspid regurgitation.
[2017-08-28] MEDS: Calcium Carbonate 500 mg Chewable Antacid Tab PO SCH ×2 (09:03→18:28)
[2017-08-28] MEDS: Enoxaparin 40 mg Syringe SC SCH (09:03)
[2017-08-28] MEDS: Multiple Vitamins Tab PO SCH (09:03)
[2017-08-28] MEDS: Pantoprazole 40 mg EC Tab PO SCH (09:03)
--- NOTE | 2017-08-28 09:54 | CP.PCM.CON ---
<Criss Venegas - Last Filed: 08/28/17 09:54> History of Present Illness - History of Present Illness History of Present Illness: GI Fellow PGY4 Consult Note This is a 62 M with PMH of HTN, EtOH abuse, BPH who was admitted for abdominal pain and found to be intoxicated with blood alcohol level of 128. CT chest/ abdomen/pelvis was done and findings showed a grade IV paraesophageal hernia. Patient reports having abdominal pain for the past few months with associated nausea and acid reflux intermittently. He describes it as a constant dull ache in epigastric region but no vomiting or regurgitation of food. He is tolerating diet and having normal BMs. At the time of evaluation pt reports he is feeling much better no further abdominal pain, nausea or vomiting. Pt denies prior EGD or colonoscopy. ROS: A 12pt ROS was negative except as above PMHx: HTN, EtOH abuse, BPH, Grade IV paraesophageal hernia PSHx: denies FHx: denies colon cancer SHx: denies tobacco/illicit drug use, drinks 1-2 shots per day Past Patient History - Past Medical History & Family History Past Medical History?: Yes - Past Social History Smoking Status: Never Smoked - CARDIAC Hx Cardiac Disorders: Yes Hx Hypertension: Yes - PULMONARY Hx Respiratory Disorders: No - NEUROLOGICAL Hx Neurological Disorder: No - HEENT Hx HEENT Problems: No - RENAL Hx Chronic Kidney Disease: No - ENDOCRINE/METABOLIC Hx Endocrine Disorders: No - HEMATOLOGICAL/ONCOLOGICAL Hx Blood Disorders: No - INTEGUMENTARY Hx Dermatological Problems: No - MUSCULOSKELETAL/RHEUMATOLOGICAL Hx Musculoskeletal Disorders: No Hx Falls: No - GASTROINTESTINAL Hx Gastrointestinal Disorders: No - GENITOURINARY/GYNECOLOGICAL Hx Genitourinary Disorders: Yes Hx Prostate Problems: Yes - PSYCHIATRIC Hx Psychophysiologic Disorder: No Hx Substance Use: No - SURGICAL HISTORY Hx Surgeries: Yes Hx Appendectomy: Yes - ANESTHESIA Hx Anesthesia: Yes Hx Anesthesia Reactions: No Hx Malignant Hyperthermia: No Has any member of the family had a problem w/ anesthesia?: No Meds Home Medications: Home Medication List Medication Instructions Recorded Confirmed Type Tamsulosin [Flomax] 0.8 mg PO DAILY 30 Days cap 08/26/17 Rx Allergies/Adverse Reactions: Allergies Allergy/AdvReac Type Severity Reaction Status Date / Time No Known Allergies Allergy Verified 08/23/17 18:36 - Medications Medications: Current Medications Calcium Carbonate (Tums) 500 mg PO BID [facility] Last Admin: 08/28/17 09:03 Dose: 500 mg Chlordiazepoxide (Librium) 25 mg PO DAILY [facility] PRN Reason: Taper Stop: 08/28/17 17:59 Last Admin: 08/28/17 09:03 Dose: 25 mg Diphenhydramine HCl (Benadryl) 25 mg IVP Q8H PRN PRN Reason: Itching / Pruritus Docusate Sodium (Colace) 100 mg PO BID [facility] Last Admin: 08/28/17 09:03 Dose: 100 mg Enoxaparin Sodium (Lovenox) 40 mg SC DAILY [facility] Last Admin: 08/28/17 09:03 Dose: 40 mg Folic Acid (Folic Acid) 1 mg PO DAILY [facility] Last Admin: 08/28/17 09:03 Dose: 1 mg Guaifenesin/Codeine Phosphate (Guaifenesin/Codeine) 10 ml PO Q4H PRN PRN Reason: Cough and congestion Last Admin: 08/25/17 10:11 Dose: 10 ml Hydromorphone HCl (Dilaudid) 1 mg IVP Q8H PRN PRN Reason: Pain, moderate (4-7) Multivitamins (Hexavitamin) 1 tab PO DAILY [facility] Last Admin: 08/28/17 09:03 Dose: 1 tab Ondansetron HCl (Zofran Odt) 4 mg PO Q4 PRN PRN Reason: Nausea/Vomiting Pantoprazole Sodium (Protonix Ec Tab) 40 mg PO DAILY [facility] Last Admin: 08/28/17 09:03 Dose: 40 mg Tamsulosin HCl (Flomax) 0.8 mg PO DAILY [facility] Last Admin: 08/28/17 09:03 Dose: 0.8 mg Thiamine HCl (Vitamin B1 Tab) 100 mg PO DAILY [facility] Last Admin: 08/28/17 09:03 Dose: 100 mg Trazodone HCl (Desyrel) 50 mg PO HS PRN PRN Reason: Insomnia Physical Exam - Constitutional Appears: Non-toxic, No Acute Distress - Head Exam Head Exam: ATRAUMATIC, NORMAL INSPECTION, NORMOCEPHALIC - Eye Exam Eye Exam: EOMI, Normal appearance, PERRL Pupil Exam: PERRL - ENT Exam ENT Exam: Mucous Membranes Moist, Normal Exam - Neck Exam Neck exam: Positive for: Full Rom - Respiratory Exam Respiratory Exam: Clear to Auscultation Bilateral, NORMAL BREATHING PATTERN - Cardiovascular Exam Cardiovascular Exam: REGULAR RHYTHM, RRR - GI/Abdominal Exam GI & Abdominal Exam: Normal Bowel Sounds, Soft. absent: Distended, Guarding, Organomegaly, Tenderness - Rectal Exam Rectal Exam: Deferred - Extremities Exam Extremities exam: Positive for: full ROM, normal inspection. Negative for: pedal edema - Back Exam Back exam: NORMAL INSPECTION - Neurological Exam Neurological exam: Alert, Oriented x3 - Psychiatric Exam Psychiatric exam: Normal Affect, Normal Mood - Skin Skin Exam: Dry, Intact, Normal Color, Warm Results - Vital Signs Recent Vital Signs: Last Vital Signs Temp 97.9 F 08/28/17 09:10 Pulse 77 08/28/17 09:10 Resp 20 08/28/17 09:10 BP 145/90 08/28/17 09:10 Pulse Ox 96 08/28/17 09:10 - Labs Result Diagrams: 08/27/17 11:52 08/27/17 11:52 Labs: Laboratory Results - last 24 hr 08/27/17 08/27/17 11:52 11:52 WBC 6.8 D RBC 3.90 L Hgb 8.7 L Hct 28.8 L MCV 73.9 L MCH 22.3 L MCHC 30.2 L RDW 20.9 H Plt Count 208 MPV 8.4 Neut % (Auto) 55.1 Lymph % (Auto) 26.6 [place] % (Auto) 14.0 H Eos % (Auto) 3.7 Baso % (Auto) 0.6 Neut # 3.8 Lymph # 1.8 [place] # 1.0 H Eos # 0.3 Baso # 0.0 Sodium 136 Potassium 4.1 Chloride 103 Carbon Dioxide 30 Anion Gap 8 L BUN 14 Creatinine 1.1 Est GFR ( Amer) > 60 Est GFR (Non-Af Amer) > 60 Random Glucose 102 Calcium 8.4 L Total Bilirubin 0.4 AST 33 ALT 49 Alkaline Phosphatase 85 Total Protein 7.2 Albumin 3.4 L Globulin 3.9 Albumin/Globulin Ratio 0.9 L Assessment & Plan - Assessment and Plan (Free Text) Assessment: This is a 62yM presenting with complaints of abdominal pain. 1. Abdominal pain 2. Paraesophageal hernia grade IV 3. GERD 4. Etoh abuse Plan: -Continue supportive care with pain control and anti-emetics -Pt found to have grade IV paraesophageal hernia, CT imaging reviewed -No signs of obstruction, volvulus, no surgical intervention per surgery -No plan for endoscopic evaluation, can followup outpt for EGD/colonoscopy -Conservative management at this time, continue po PPI daily -Alcohol cessation counseling -Please call with any questions or concerns <Rao Aranda - Last Filed: 08/28/17 10:13> Meds - Medications Medications: Current Medications Calcium Carbonate (Tums) 500 mg PO BID [facility] Last Admin: 08/28/17 09:03 Dose: 500 mg Chlordiazepoxide (Librium) 25 mg PO DAILY [facility] PRN Reason: Taper Stop: 08/28/17 17:59 Last Admin: 08/28/17 09:03 Dose: 25 mg Diphenhydramine HCl (Benadryl) 25 mg IVP Q8H PRN PRN Reason: Itching / Pruritus Docusate Sodium (Colace) 100 mg PO BID [facility] Last Admin: 08/28/17 09:03 Dose: 100 mg Enoxaparin Sodium (Lovenox) 40 mg SC DAILY [facility] Last Admin: 08/28/17 09:03 Dose: 40 mg Folic Acid (Folic Acid) 1 mg PO DAILY [facility] Last Admin: 08/28/17 09:03 Dose: 1 mg Guaifenesin/Codeine Phosphate (Guaifenesin/Codeine) 10 ml PO Q4H PRN PRN Reason: Cough and congestion Last Admin: 08/25/17 10:11 Dose: 10 ml Hydromorphone HCl (Dilaudid) 1 mg IVP Q8H PRN PRN Reason: Pain, moderate (4-7) Multivitamins (Hexavitamin) 1 tab PO DAILY [facility] Last Admin: 08/28/17 09:03 Dose: 1 tab Ondansetron HCl (Zofran Odt) 4 mg PO Q4 PRN PRN Reason: Nausea/Vomiting Pantoprazole Sodium (Protonix Ec Tab) 40 mg PO DAILY [facility] Last Admin: 08/28/17 09:03 Dose: 40 mg Tamsulosin HCl (Flomax) 0.8 mg PO DAILY [facility] Last Admin: 08/28/17 09:03 Dose: 0.8 mg Thiamine HCl (Vitamin B1 Tab) 100 mg PO DAILY [facility] Last Admin: 08/28/17 09:03 Dose: 100 mg Trazodone HCl (Desyrel) 50 mg PO HS PRN PRN Reason: Insomnia Results - Vital Signs Recent Vital Signs: Last Vital Signs Temp 97.9 F 08/28/17 09:10 Pulse 77 08/28/17 09:10 Resp 20 08/28/17 09:10 BP 145/90 08/28/17 09:10 Pulse Ox 96 08/28/17 09:10 - Labs Result Diagrams: 08/27/17 11:52 08/27/17 11:52 Labs: Laboratory Results - last 24 hr 08/27/17 08/27/17 11:52 11:52 WBC 6.8 D RBC 3.90 L Hgb 8.7 L Hct 28.8 L MCV 73.9 L MCH 22.3 L MCHC 30.2 L RDW 20.9 H Plt Count 208 MPV 8.4 Neut % (Auto) 55.1 Lymph % (Auto) 26.6 [place] % (Auto) 14.0 H Eos % (Auto) 3.7 Baso % (Auto) 0.6 Neut # 3.8 Lymph # 1.8 [place] # 1.0 H Eos # 0.3 Baso # 0.0 Sodium 136 Potassium 4.1 Chloride 103 Carbon Dioxide 30 Anion Gap 8 L BUN 14 Creatinine 1.1 Est GFR ( Amer) > 60 Est GFR (Non-Af Amer) > 60 Random Glucose 102 Calcium 8.4 L Total Bilirubin 0.4 AST 33 ALT 49 Alkaline Phosphatase 85 Total Protein 7.2 Albumin 3.4 L Globulin 3.9 Albumin/Globulin Ratio 0.9 L Attending/Attestation - Attestation I have personally seen and examined this patient.: Yes I have fully participated in the care of the patient.: Yes I have reviewed all pertinent clinical information: Yes Notes (Text): 08/28/17 10:05 I have seen and examined patient with GI fellow. Agree with above documentation with the following additions. In brief, this is a 62 year old male with history of HTN, ETOH abuse who presented to hospital with complaint of abdominal pain in setting of acute ETOH intoxication. He describes having intermittent epigastric abdominal pain, 7/10 intensity which is non-radiating and worse with movement for the past 3 months accompanied with nausea. He denies associated vomiting, fever/chills, weight loss, rectal bleeding, or change in bowel habits. Currently he feels well and his abdominal pain has resolved. He is tolerating PO diet without any difficulty. Review of vitals from today are normal. No prior endoscopic evaluation. HTN ETOH abuse, acute intoxication Abdominal pain CT imaging reviewed by me showing large paraesophageal hiatal hernia without features of volvulus or intestinal obstruction - Diet as tolerated - Anti-emetic therapy PRN - Gastrograffin study ordered by surgical team, follow up recommendations - ETOH cessation counseling - Patient would benefit from endoscopic evaluation (EGD/colonoscopy) prior to consideration of operative intervention. This can be performed electively as outpatient, office contact information provided to patient. From GI perpective ok to discharge home with subsequent outpatient follow up. Will sign off case, please reconsult as necessary, thank you.
--- NOTE | 2017-08-28 17:02 | CP.PCM.PN ---
Subjective - Date & Time of Evaluation Date of Evaluation: 08/28/17 Time of Evaluation: 09:00 - Subjective Subjective: clinically same Objective - Vital Signs/Intake and Output Vital Signs (last 24 hours): Temp Pulse Resp BP Pulse Ox 97.9 F 77 20 145/90 96 08/28/17 09:10 08/28/17 09:10 08/28/17 09:10 08/28/17 09:10 08/28/17 09:10 Intake and Output: 08/28/17 08/28/17 06:59 18:59 Intake Total 400 480 Output Total 500 Balance -100 480 - Medications Medications: Current Medications Calcium Carbonate (Tums) 500 mg PO BID [facility] Last Admin: 08/28/17 09:03 Dose: 500 mg Chlordiazepoxide (Librium) 25 mg PO DAILY [facility] PRN Reason: Taper Stop: 08/28/17 17:59 Last Admin: 08/28/17 09:03 Dose: 25 mg Diphenhydramine HCl (Benadryl) 25 mg IVP Q8H PRN PRN Reason: Itching / Pruritus Docusate Sodium (Colace) 100 mg PO BID [facility] Last Admin: 08/28/17 09:03 Dose: 100 mg Enoxaparin Sodium (Lovenox) 40 mg SC DAILY [facility] Last Admin: 08/28/17 09:03 Dose: 40 mg Folic Acid (Folic Acid) 1 mg PO DAILY [facility] Last Admin: 08/28/17 09:03 Dose: 1 mg Guaifenesin/Codeine Phosphate (Guaifenesin/Codeine) 10 ml PO Q4H PRN PRN Reason: Cough and congestion Last Admin: 08/25/17 10:11 Dose: 10 ml Hydromorphone HCl (Dilaudid) 1 mg IVP Q8H PRN PRN Reason: Pain, moderate (4-7) Multivitamins (Hexavitamin) 1 tab PO DAILY [facility] Last Admin: 08/28/17 09:03 Dose: 1 tab Ondansetron HCl (Zofran Odt) 4 mg PO Q4 PRN PRN Reason: Nausea/Vomiting Pantoprazole Sodium (Protonix Ec Tab) 40 mg PO DAILY [facility] Last Admin: 08/28/17 09:03 Dose: 40 mg Tamsulosin HCl (Flomax) 0.8 mg PO DAILY [facility] Last Admin: 08/28/17 09:03 Dose: 0.8 mg Thiamine HCl (Vitamin B1 Tab) 100 mg PO DAILY [facility] Last Admin: 08/28/17 09:03 Dose: 100 mg Trazodone HCl (Desyrel) 50 mg PO HS PRN PRN Reason: Insomnia - Labs Labs: 08/27/17 11:52 08/27/17 11:52 - Constitutional Appears: Well - Head Exam Head Exam: ATRAUMATIC, NORMAL INSPECTION, NORMOCEPHALIC - Eye Exam Eye Exam: EOMI, Normal appearance, PERRL Pupil Exam: NORMAL ACCOMODATION, PERRL - ENT Exam ENT Exam: Mucous Membranes Moist, Normal Exam - Neck Exam Neck Exam: Full ROM, Normal Inspection. absent: Lymphadenopathy - Respiratory Exam Respiratory Exam: Clear to Ausculation Bilateral, NORMAL BREATHING PATTERN - Cardiovascular Exam Cardiovascular Exam: REGULAR RHYTHM, +S1, +S2. absent: Murmur - GI/Abdominal Exam GI & Abdominal Exam: Soft, Normal Bowel Sounds. absent: Tenderness - Rectal Exam Rectal Exam: Deferred - Extremities Exam Extremities Exam: Full ROM, Normal Capillary Refill, Normal Inspection. absent : Joint Swelling, Pedal Edema - Back Exam Back Exam: NORMAL INSPECTION Assessment and Plan (1) Abdominal pain Status: Acute (2) Alcohol intoxication Status: Acute (3) Anemia Status: Acute (4) HTN (hypertension) Status: Acute (5) Hiatal hernia without gangrene and obstruction Status: Acute (6) Withdrawal symptoms, alcohol Status: Acute - Assessment and Plan (Free Text) Plan: Patient examined. Patient better. Continue folic acid, thiamine, multivitamins and Librium. Continue supportive care.
[2017-08-28] MEDS: guaiFENesin-Codeine 100-10mg/5ml Syrup (10ml) UD PO PRN (20:53)
[2017-08-29 00:02] VITALS: O2SAT 95
--- NOTE | 2017-08-29 10:24 | CP.PCM.PN ---
Subjective - Date & Time of Evaluation Date of Evaluation: 08/29/17 Time of Evaluation: 10:24 - Subjective Subjective: PGY-[address] Owusu's Service: Pt seen and examined at bedside. He denies current complaints and wants to leave AMA. This was cleared with his PMD, and was given prescription for Tamsulosin and advised to follow up with GI and surgery as outpatient regarding his hernia surgery. Patient advised of ECHO findings but refused treatment with medications for diastolic dysfunction CHF. He was advised to follow up with PMD or clinical program consultant of his choosing. Objective - Vital Signs/Intake and Output Vital Signs (last 24 hours): Temp Pulse Resp BP Pulse Ox 99.1 F 67 20 107/67 95 08/28/17 23:00 08/28/17 23:00 08/28/17 23:00 08/28/17 23:00 08/28/17 23:00 Intake and Output: 08/29/17 08/29/17 06:59 18:59 Intake Total 400 Balance 400 - Medications Medications: Current Medications Calcium Carbonate (Tums) 500 mg PO BID [facility] Last Admin: 08/28/17 18:28 Dose: 500 mg Diphenhydramine HCl (Benadryl) 25 mg IVP Q8H PRN PRN Reason: Itching / Pruritus Docusate Sodium (Colace) 100 mg PO BID [facility] Last Admin: 08/28/17 17:13 Dose: 100 mg Enoxaparin Sodium (Lovenox) 40 mg SC DAILY [facility] Last Admin: 08/28/17 09:03 Dose: 40 mg Folic Acid (Folic Acid) 1 mg PO DAILY [facility] Last Admin: 08/28/17 09:03 Dose: 1 mg Guaifenesin/Codeine Phosphate (Guaifenesin/Codeine) 10 ml PO Q4H PRN PRN Reason: Cough and congestion Last Admin: 08/28/17 20:53 Dose: 10 ml Multivitamins (Hexavitamin) 1 tab PO DAILY [facility] Last Admin: 08/28/17 09:03 Dose: 1 tab Ondansetron HCl (Zofran Odt) 4 mg PO Q4 PRN PRN Reason: Nausea/Vomiting Pantoprazole Sodium (Protonix Ec Tab) 40 mg PO DAILY [facility] Last Admin: 08/28/17 09:03 Dose: 40 mg Tamsulosin HCl (Flomax) 0.8 mg PO DAILY [facility] Last Admin: 08/28/17 09:03 Dose: 0.8 mg Thiamine HCl (Vitamin B1 Tab) 100 mg PO DAILY [facility] Last Admin: 08/28/17 09:03 Dose: 100 mg Trazodone HCl (Desyrel) 50 mg PO HS PRN PRN Reason: Insomnia - Labs Labs: 08/27/17 11:52 08/27/17 11:52 - Constitutional Appears: Non-toxic, No Acute Distress - Head Exam Head Exam: ATRAUMATIC, NORMOCEPHALIC - Eye Exam Eye Exam: EOMI. absent: Scleral icterus - ENT Exam ENT Exam: Mucous Membranes Moist - Neck Exam Neck Exam: Full ROM - Respiratory Exam Respiratory Exam: Clear to Ausculation Bilateral, NORMAL BREATHING PATTERN - Cardiovascular Exam Cardiovascular Exam: REGULAR RHYTHM, +S1, +S2 - GI/Abdominal Exam GI & Abdominal Exam: Soft, Normal Bowel Sounds. absent: Tenderness - Extremities Exam Extremities Exam: Normal Inspection - Back Exam Back Exam: absent: CVA tenderness (L), CVA tenderness (R) - Neurological Exam Neurological Exam: Alert, Awake, Oriented x3 - Psychiatric Exam Psychiatric exam: Normal Affect, Normal Mood - Skin Skin Exam: Normal Color, Warm Assessment and Plan - Assessment and Plan (Free Text) Plan: EtOH Withdrawal -Thiamine/Folate/MV daily -Librium Taper Completed -once stable patient can be d/c home/to outpatient rehab as per psych -patient is not in DT/having seizures/actively withdrawing on current taper -patient is tolerating PO Pancytopenia most likely 2/2 to chronic EtOH Bone marrow toxicity -patient has no active bleeding -will continue to monitor; patient advised to stop drinking Type 4 paraesophageal hernia -patient will likely need surgical repair; pending surgical consult -patient needs to be medically optimized before surgery; f/u echo and Dr. Humphrey cardio recs GI consult: Dr. Aranda, help appreciated - EGD/colonoscopy prior to operative intervention - ok to discharge home with subsequent outpatient follow, signed off Cardio Consult: Dr. Humphrey, Pre-op clearance - No cardiovascular contraindication to the planned surgery ECHO (08/28/17): LV is normal size, EF 60-65%, LV diastolic function is abnormal - Grade I abnormal relaxation pattern. Mild tricuspid regurgitation noted. CHF (diastolic dysfunction) ECHO (08/28/17): LV is normal size, EF 60-65%, LV diastolic function is abnormal - Grade I abnormal relaxation pattern. Mild tricuspid regurgitation noted. - Pt refused prescriptions for Beta frances/MARYAN inhibitor - advised patient to follow up with outpatient clinical program consultant, Dr. Humphrey recommended because he saw patient in hospital Electrolyte Imbalance 08/26: Hypokalemia, K3.5 - repleted Prophylaxis Protonix Lovenox Heart Healthy Diet All management as per Dr. Marin Owusu Disposition: Pt chose to leave AMA Case discussed with attending. All medical management as per Dr. Marin Owusu
[2017-08-29] MEDS: Multiple Vitamins Tab PO SCH (10:34)
[2017-08-29] MEDS: Pantoprazole 40 mg EC Tab PO SCH (10:35)
[2017-08-29] MEDS: Calcium Carbonate 500 mg Chewable Antacid Tab PO SCH (10:35)
[2017-08-29] MEDS: Enoxaparin 40 mg Syringe SC SCH (10:36)
[2017-08-29 12:13] VITALS: BP 135/78; PULSE 77; RESP 18; TEMP 98.5
== END 2017-08-29 11:20 | disposition left against medical advice (07) | DRG 749 ==
LOC: C.ER 18:08 → C.9E 08-24 00:26 → C.5S 08-24 17:51
PROVIDERS: ADMIT Internal Medicine Nephrology; ATTEND Internal Medicine Nephrology
PROC: HZ2ZZZZ Detoxification Services for Substance Abuse Treatment (ICD-10-PCS; principal; 2017-08-24)
DX: F10.239 Alcohol dependence with withdrawal, unspecified (principal); D61.818 Other pancytopenia; E87.6 Hypokalemia; K44.9 Diaphragmatic hernia without obstruction or gangrene; I10 Essential (primary) hypertension; Y90.6 Blood alcohol level of 120-199 mg/100 ml; K21.9 Gastro-esophageal reflux disease without esophagitis; K59.00 Constipation, unspecified; N40.1 Benign prostatic hyperplasia with lower urinary tract symptoms; R39.15 Urgency of urination; Z53.29 Procedure and treatment not carried out because of patient's decision for other reasons